=== PATIENT | male | born 1940 | race Caucasian/White ===

== ENCOUNTER 2016-09-28 13:31 | Inpatient (IN) | payer OTHER ==
[~2016-09-28] VITALS: Ht 167.6 cm; Wt 72.3 kg
[2016-09-28] VITALS (8 sets, daily range): BP systolic 115–157; BP diastolic 56–72; PULSE 65–71; RESP 18–30; TEMP 98.7–101; O2SAT 92–97
[~2016-09-28 13:31] MED LIST: 1-ME1LIQ PO; ALBU17I INH; ASPI81TA82 PO; COUM4TAB7 PO; FISH100020 OR; ISOS60TA PO; LASI20TA PO; LEVEMIR SQ; LISI-360 PO; METO50TA PO; NOVOLOGP2 SQ; PRED20 PO; SIMV40TA PO; WARF6 PO
[2016-09-28] MEDS ORDERED: ONDANSETRON HCL 4 MG/2 ML VIAL ONE (13:37)
[2016-09-28] MEDS ORDERED: FUROSEMIDE 40 MG/4 ML VIAL IVP ONE (14:00)
[2016-09-28] MEDS ORDERED: NITROGLYCERIN 0.4 MG SL 25 TABS/BTL SL ONE (14:00)
[2016-09-28] MEDS ORDERED: RESP: ALBUTEROL 2.5 MG/IPRATROPIUM 0.5 MG NEB (SCH) INH ONE (14:00)
[2016-09-28] MEDS ORDERED: SODIUM CHLORIDE 0.9% FLUSH 10 ML FLUSH IVF PRN (14:00)
[2016-09-28] MEDS ORDERED: NITROGLYCERIN 2% OINT 1 GM PACKET TOPICAL ONE (14:00)
[2016-09-28] MEDS ORDERED: ONDANSETRON HCL 4 MG/2 ML VIAL IV ONE ×2 (14:30)
--- NOTE | 2016-09-28 14:36 | PD ---
HPI Chief Complaint: Respiratory Distress Time Seen by Provider: 13:41 Travel History International Travel<30 days: No Contact w/Intl Traveler<30days: No Traveled to known affect area: No History of Present Illness HPI This 76-year-old man who presents to the emergency department complaining of shortness of breath and trouble breathing is been ongoing for a couple weeks. He's also been having more recent cough cold symptoms over the past several days. A little bit of left-sided chest pain, worse with coughing or deep breathing. He's also had some chronic edema in his lower extremities that maybe a little bit worse than normal. [facility] and [facility] department. His a history of CHF, CAD, pacemaker placement, as well as diabetes and A. fib. He is on warfarin. He's been taking all of his medications regularly including his Lasix 20 mg daily. No definite fevers by history although he was 101 today. History Past Medical History Narrative Medical Atrial fibrillation, on warfarin Biotronic pacemaker placed Diabetes ASCVD Hyperlipidemia Neuropathy CAD status post stent, possible CO CHF Tetanus Vaccination: < 5 Years Influenza Vaccination: Yes LMP: 6 Social History Alcohol Use: No Tobacco Use: No Allergies-Medications (Allergen,Severity, Reaction): Coded Allergies: Contrast Media (Verified Allergy, Intermediate, RASH, 08/24/13) Gabapentin (Verified Allergy, DISORIENTATION , 08/24/13) Lopid (Verified Allergy, GI PROBLEM, 08/24/13) Metformin (Verified Allergy, GI PROBLEM, 08/24/13) Reported Meds & Prescriptions Reported Meds & Active Scripts Active Reported Warfarin 2 Mg Tab 2 Mg PO TUESDAY Warfarin 4 Mg Tab 4 Mg PO SUTUWETHFRSA Simvastatin 10 Mg Tab 10 Mg PO HS Metoprolol Tartrate 25 Mg Tab 25 Mg PO BID Lisinopril 10 Mg Tab 10 Mg PO DAILY Isosorbide Mononitrate ER (Isosorbide Mononitrate) 60 Mg Tab 60 Mg PO DAILY Novolin N Inj (Insulin Human NPH) 1,000 Unit/10 Ml Vial 40 Units SQ BID Isopto Tears Opth Drops (Hypromellose) 0.5% Drops 1 Drop EACH EYE QID Lasix (Furosemide) 20 Mg Tab 20 Mg PO BID Aspirin EC Low Dose (Aspirin) 81 Mg Tabec 81 Mg PO DAILY Polyvinyl Alcohol Opth (Polyvinyl Alcohol) 1.4% Soln 1 Drop EACH EYE QID Amlodipine (Amlodipine Besylate) 10 Mg Tab 10 Mg PO DAILY Ventolin Hfa 18 GM Inh (Albuterol Sulfate) 90 Mcg/Act Aer 2 Puff INH TID PRN Review of Systems Except as stated in HPI: all other systems reviewed are Neg Physical Exam Narrative GENERAL: 76-year-old man, intermittent vomiting, moderate respiratory distress. SKIN: Focused skin assessment warm/dry. HEAD: Atraumatic. Normocephalic. EYES: Pupils equal and round. No scleral icterus. No injection or drainage. ENT: No nasal bleeding or discharge. Mucous membranes pink and moist. NECK: Trachea midline. No JVD. CARDIOVASCULAR: Regular rate and rhythm. No murmur appreciated. RESPIRATORY: Coarse breath sounds on the posterior lung liu arouse throughout the lower lungs. Moderate respiratory distress, speaks in short sentences. GASTROINTESTINAL: Abdomen soft, non-tender, nondistended. Hepatic and splenic margins not palpable. MUSCULOSKELETAL: No obvious deformities. Moderate pitting edema both lower extremities. NEUROLOGICAL: Awake and alert. No obvious cranial nerve deficits. Motor grossly within normal limits. Normal speech. PSYCHIATRIC: Anxious appearing. Data Data Last Documented VS Vital Signs Date Time Temp Pulse Resp B/P Pulse Ox O2 Delivery O2 Flow Rate FiO2 09/28/16 14:25 71 20 97 Nasal Cannula 4 09/28/16 14:23 155/72 09/28/16 14:19 101.0 Orders Ondansetron Inj (Zofran Inj) (09/28/16 13:37) Complete Blood Count With Diff (09/28/16 13:55) Comprehensive Metabolic Panel (09/28/16 13:55) B-Type Natriuretic Peptide (09/28/16 13:55) Act Partial Throm Time (Ptt) (09/28/16 13:55) Prothrombin Time / Inr (Pt) (09/28/16 13:55) Magnesium (Mg) (09/28/16 13:55) Troponin I (09/28/16 13:55) Urinalysis - C+S If Indicated (09/28/16 13:55) Iv Access Insert/Monitor (09/28/16 13:55) Ecg Monitoring (09/28/16 13:55) Oximetry (09/28/16 13:55) Oxygen Administration (09/28/16 13:55) Chest, Single Ap (09/28/16 13:55) Sodium Chloride 0.9% Flush (Ns Flush) (09/28/16 14:00) Furosemide Inj (Lasix Inj) (09/28/16 14:00) Albuterol-Ipratropium Neb (Duoneb Neb) (09/28/16 14:00) Nitroglycerin Sl (Nitrostat Sl) (09/28/16 14:00) Nitroglycerin 2% Oint (Nitroglycerin 2% (09/28/16 14:00) Lactic Acid (09/28/16 14:12) Blood Culture (09/28/16 14:12) Ondansetron Inj (Zofran Inj) (09/28/16 14:30) Ondansetron Inj (Zofran Inj) (09/28/16 14:30) Ceftriaxone Inj (Rocephin Inj) (09/28/16 15:45) Azithromycin Inj (Zithromax Inj) (09/28/16 15:45) Admit Order (Ed Use Only) (09/28/16 ) Labs Laboratory Tests Test 09/28/16 09/28/16 09/28/16 14:05 14:10 15:30 White Blood Count 18.1 TH/MM3 Red Blood Count 5.74 MIL/MM3 Hemoglobin 15.5 GM/DL Hematocrit 48.3 % Mean Corpuscular Volume 84.1 FL Mean Corpuscular Hemoglobin 27.0 PG Mean Corpuscular Hemoglobin 32.1 % Concent Red Cell Distribution Width 15.1 % Platelet Count 256 TH/MM3 Mean Platelet Volume 9.0 FL Neutrophils (%) (Auto) 85.7 % Lymphocytes (%) (Auto) 7.1 % Monocytes (%) (Auto) 6.3 % Eosinophils (%) (Auto) 0.5 % Basophils (%) (Auto) 0.4 % Neutrophils # (Auto) 15.5 TH/MM3 Lymphocytes # (Auto) 1.3 TH/MM3 Monocytes # (Auto) 1.1 TH/MM3 Eosinophils # (Auto) 0.1 TH/MM3 Basophils # (Auto) 0.1 TH/MM3 CBC Comment DIFF FINAL Differential Comment Prothrombin Time 28.7 SEC Prothromb Time International 2.5 RATIO Ratio Activated Partial 37.0 SEC Thromboplast Time Sodium Level 142 MEQ/L Potassium Level 3.8 MEQ/L Chloride Level 108 MEQ/L Carbon Dioxide Level 23.1 MEQ/L Anion Gap 11 MEQ/L Blood Urea Nitrogen 21 MG/DL Creatinine 1.51 MG/DL Estimat Glomerular Filtration 45 ML/MIN Rate Random Glucose 159 MG/DL Calcium Level 9.4 MG/DL Magnesium Level 2.1 MG/DL Total Bilirubin 1.3 MG/DL Aspartate Amino Transf 21 U/L (AST/SGOT) Alanine Aminotransferase 21 U/L (ALT/SGPT) Alkaline Phosphatase 96 U/L Troponin I LESS THAN 0.02 NG/ML B-Type Natriuretic Peptide 230 PG/ML Total Protein 8.1 GM/DL Albumin 4.0 GM/DL Lactic Acid Level 3.7 mmol/L Urine Color YELLOW Urine Turbidity CLEAR Urine pH 5.0 Urine Specific [place] 1.013 Urine Protein 30 mg/dL Urine Glucose (UA) NEG mg/dL Urine Ketones NEG mg/dL Urine Occult Blood NEG Urine Nitrite NEG Urine Bilirubin NEG Urine Urobilinogen LESS THAN 2.0 MG/DL Urine Leukocyte Esterase NEG Urine RBC 2 /hpf Urine WBC 1 /hpf Microscopic Urinalysis Comment CULT NOT INDICATED MDM Medical Decision Making Medical Screen Exam Complete: Yes Emergency Medical Condition: Yes Interpretation(s) My review of EKG: V paced at a rate of 69 LABS: CBC remarkable for white count of 18.1 thousand CMP is remarkable for elevated BUN and creatinine, total bili 1.3 Troponin negative BNP 2:30 Lactate 3.7 INR 2.5 Chest x-ray: Cardiomegaly with left basilar density, small left pleural effusion. Differential Diagnosis CHF, volume overload, pneumonia, sepsis, other Narrative Course Medical decision making INITIAL: This a 76 year-old woman with history of CHF who presents emergency Department respiratory distress with cough cold symptoms and associated evidence of volume overload. He likely a CHF exacerbation plus or minus pneumonia. He does have a fever. His a moderate respiratory distress. Was on diuretics, nitrates, check for ACS, and check an x-ray. Likely. Sugar pneumonia, no be admitted for observation and treatment. FINAL: 76 year-old woman with CHF exacerbation complicated by pneumonia. We'll treat antibiotics, diuretics, close monitoring. Diagnosis Primary Impression: CHF exacerbation Additional Impression: Pneumonia Admitting Information Admitting Physician Requests: Admit Disposition: DISCHARGE HOME Condition: Stable Dany Trivedi MD September 28, 2016 14:36
[2016-09-28] MEDS ORDERED: FURO1TAB62 PO (14:38)
[2016-09-28] MEDS ORDERED: AMLO10TA2 PO (14:38)
[2016-09-28] MEDS ORDERED: VENTAER INH (14:38)
[2016-09-28] MEDS ORDERED: ASPI81TA2 PO (14:38)
[2016-09-28] MEDS ORDERED: ISOP0.5S EACH EYE (14:38)
[2016-09-28] MEDS ORDERED: POLY0.052 EACH EYE (14:38)
[2016-09-28] MEDS ORDERED: NOVONP2 SQ (14:43)
[2016-09-28 14:50] LABS: AUTOMATED NEUTROPHIL # 15.5 TH/MM3 (1.8-7.7); BASOPHIL # 0.1 TH/MM3 (0-0.2); BASOPHIL % 0.4 % (0.0-2.0); EOSINOPHIL # 0.1 TH/MM3 (0-0.4); EOSINOPHIL % 0.5 % (0.0-4.0); HEMATOCRIT 48.3 % (39.0-51.0); HEMO FLAGS DIFF FINAL; LYMPH % 7.1 % (9.0-44.0); LYMPHOCYTE # 1.3 TH/MM3 (1.0-4.8); MEAN CELL VOLUME 84.1 FL (80.0-100.0); MEAN CORPUSCULAR HGB CONC 32.1 % (32.0-36.0); MONO % 6.3 % (0.0-8.0); NEUT % 85.7 % (16.0-70.0); PLATELET COUNT 256 TH/MM3 (150-450); RED BLOOD COUNT 5.74 MIL/MM3 (4.50-5.90); RED CELL DISTRIBUTION WIDTH 15.1 % (11.6-17.2); WHITE BLOOD COUNT 18.1 TH/MM3 (4.0-11.0)
--- NOTE | 2016-09-28 14:50 | RADRPT ---
EXAM DATE/TIME: 09/28/2016 14:05 [facility] COMPARISON: CHEST SINGLE AP, August 24, 2013, 10:34. INDICATIONS : Short of breath. MEDICAL HISTORY : Hypertension. Hypercholesterolemia. Congestive heart failure. Atrial fibrillation. Diabetes. SURGICAL HISTORY : None. ENCOUNTER: Initial ACUITY: 1 day PAIN SCORE: 2/10 LOCATION: Bilateral chest FINDINGS: A single view of the chest demonstrates cardiomegaly with small left pleural effusion. There is some pleural thickening laterally on the left. Left basilar density. Right lung clear. Left-sided pacemake r with 2 intact leads. Osseous structures are intact. CONCLUSION: 1. Cardiomegaly with left basilar density. 2. Small pleural effusion on the left. Rambo Hare MD on September 28, 2016 at 14:48 Board Certified Radiologist. This report was verified electronically.
[2016-09-28] MEDS ORDERED: SIMV10TA PO (14:51)
[2016-09-28] MEDS ORDERED: WARF-20 PO (14:51)
[2016-09-28] MEDS ORDERED: ISOS60TA PO (14:51)
[2016-09-28] MEDS ORDERED: WARF4TAB51 PO (14:51)
[2016-09-28] MEDS ORDERED: METO25TA3 PO (14:51)
[2016-09-28] MEDS ORDERED: LISI10TA3 PO (14:51)
[2016-09-28 14:56] LABS: INTERNATIONAL NORMALIZED RATIO 2.5 RATIO; PROTHROMBIN TIME - PATIENT 28.7 SEC (9.8-11.6)
[2016-09-28 15:08] LABS: ALT (GPT) 21 U/L (12-78); ANION GAP 11 MEQ/L (5-15); AST (GOT) 21 U/L (15-37); BICARBONATE 23.1 MEQ/L (21.0-32.0); BLOOD UREA NITROGEN 21 MG/DL (7-18); CHLORIDE 108 MEQ/L (98-107); GLOMERULAR FILTRATION RATE 45 ML/MIN (>89); MAGNESIUM 2.1 MG/DL (1.5-2.5); POTASSIUM 3.8 MEQ/L (3.5-5.1); SODIUM (NA) 142 MEQ/L (136-145)
[2016-09-28 15:12] LABS: ALKALINE PHOSPHATASE 96 U/L (45-117); TOTAL BILIRUBIN ADULT 1.3 MG/DL (0.2-1.0)
[2016-09-28] MEDS ORDERED: cefTRIAXone INJ 1,000 MG in SODIUM CHLORIDE 0.9% INJ 100 ML IV ONE (15:45)
[2016-09-28] MEDS ORDERED: AZITHROMYCIN INJ 500 MG in SODIUM CHLOR 0.9% 250 ML INJ 250 ML IV ONE (15:45)
[2016-09-28 16:04] LABS: BLOOD, URINE NEG (NEG); GLUCOSE,URINE NEG (NEG); KETONE, URINE NEG (NEG); NITRITE,URINE NEG (NEG); URINE COLOR YELLOW (YELLW/STRAW)
[2016-09-28 16:12] LABS: COMMENT (UR) CULT NOT INDICATED; CULTURE IF INDICATED CULT NOT INDICATED
[2016-09-28] MEDS ORDERED: SODIUM CHLORIDE 0.9% FLUSH 10 ML FLUSH IV FLUSH PRN (17:45)
[2016-09-28] MEDS: INSULIN HUMAN NPH 1,000 UNITS/10 ML VIAL SQ SCH (19:30)
[2016-09-28] MEDS ORDERED: RESP: ALBUTEROL 2.5 MG/IPRATROPIUM 0.5 MG NEB (SCH) NEB ONE (19:45)
[2016-09-28] MEDS ORDERED: POTASSIUM CHLORIDE 20 MEQ CONTROLLED RELEASE TAB PO ONE (19:45)
--- NOTE | 2016-09-28 19:50 | HHI.HP ---
[facility] Admission Diagnosis pneumonia, CHF exacerbation Diagnoses: Chief Complaint: Shortness of breath Travel History International Travel<30 Days: No Contact w/Intl Traveler <30 Da: No Traveled to Known Affected Are: No History of Present Illness The patient is a 76-year-old male with a past medical history of heart failure who is presenting to the hospital with shortness of breath. The patient says he has had a cough over the past month. He says that cough has been productive but he is unable to describe what color the mucus has been. He says he has been having coughing fits which are worse at night. He says he recently went to [place] where it was cold and he developed cold-like symptoms. He endorsed chills and congestion. He has also had increasing shortness of breath. He has been noticing weight gain. He says his legs are swollen. He says over the years he has had 8 episodes of heart failure exacerbation. He says at night he sleeps on the left side of his body because he read that was better for you. He says today he had a fever. He went to the [facility] where he was referred to the hospital. He has been having a headache. He says his appetite has been poor. He has been ambulating without a cane or a walker. He says he takes 2 water pills daily. Review of Systems Except as stated in HPI: all other systems reviewed are Neg Past Family Social History Past Medical History Atrial fibrillation Biotronic pacemaker placed Diabetes Hyperlipidemia Hypertension Neuropathy CAD status post stent CHF Kidney stones Allergies: Coded Allergies: Contrast Media (Verified Allergy, Intermediate, RASH, 08/24/13) Gabapentin (Verified Allergy, DISORIENTATION , 08/24/13) Lopid (Verified Allergy, GI PROBLEM, 08/24/13) Metformin (Verified Allergy, GI PROBLEM, 08/24/13) Active Ordered Medications Current Medications Medications (Trade) Dose Ordered Sig/Lesa Route Start Time Stop Time Status Last Admin (NS Flush) 2 ml UNSCH PRN IV FLUSH 09/28/16 17:45 Sodium Chloride 2 ml 2 ml BID IV FLUSH 09/28/16 21:00 (Rocephin Inj/NS Inj) 100 ml @ 200 mls/hr Q24H IV 09/29/16 16:00 (Zithromax) 500 mg Q24H PO 09/29/16 16:00 Insulin Human NPH 20 units 20 units BID@08,17 SQ 09/28/16 19:30 (Coumadin Consult Pharmacy) 0 ml @ 0 mls/hr UNSCH OTHER 09/28/16 19:30 (Coumadin) 4 mg DAILY@16 PO 09/29/16 16:00 (Norvasc) 10 mg DAILY PO 09/29/16 09:00 (Ecotrin Ec) 81 mg DAILY PO 09/29/16 09:00 (Imdur) 60 mg DAILY PO 09/29/16 09:00 (Lopressor) 25 mg BID PO 09/28/16 21:00 (Pravachol) 20 mg HS PO 09/28/16 21:00 (Lasix Inj) 40 mg BID@09,18 IV PUSH 09/29/16 09:00 UNV (KCl) 20 meq ONCE ONCE PO 09/28/16 19:45 09/28/16 19:46 UNV Family History The patient denies pertinent family history. Social History The patient quit smoking in 1996. He does not drink alcohol. Physical Exam Vital Signs Vital Signs Date Time Temp Pulse Resp B/P Pulse Ox O2 Delivery O2 Flow Rate FiO2 09/28/16 18:18 98.8 69 18 118/56 97 Nasal Cannula 3 09/28/16 17:00 70 18 138/65 96 Nasal Cannula 4 09/28/16 14:25 71 20 97 Nasal Cannula 4 09/28/16 14:23 69 25 155/72 97 Nasal Cannula 3 09/28/16 14:23 97 Nasal Cannula 4 09/28/16 14:19 101.0 71 24 157/65 97 Physical Exam GENERAL: Ill-appearing male, short of breath. SKIN: Focused skin assessment warm/dry. HEAD: Atraumatic. Normocephalic. EYES: Pupils equal and round. No scleral icterus. No injection or drainage. ENT: No nasal bleeding or discharge. Mucous membranes pink and moist. NECK: Trachea midline. No JVD. CARDIOVASCULAR: Regular rate and rhythm. No murmur appreciated. RESPIRATORY: Coarse breath sounds. GASTROINTESTINAL: Abdomen soft, non-tender, nondistended. Hepatic and splenic margins not palpable. MUSCULOSKELETAL: No obvious deformities. 1+ pitting edema of both lower extremities. NEUROLOGICAL: Awake and alert. No obvious cranial nerve deficits. Motor grossly within normal limits. Normal speech. PSYCHIATRIC: Anxious appearing. Laboratory Laboratory Tests Test 09/28/16 09/28/16 09/28/16 14:05 14:10 15:30 White Blood Count 18.1 Red Blood Count 5.74 Hemoglobin 15.5 Hematocrit 48.3 Mean Corpuscular Volume 84.1 Mean Corpuscular Hemoglobin 27.0 Mean Corpuscular Hemoglobin 32.1 Concent Red Cell Distribution Width 15.1 Platelet Count 256 Mean Platelet Volume 9.0 Neutrophils (%) (Auto) 85.7 Lymphocytes (%) (Auto) 7.1 Monocytes (%) (Auto) 6.3 Eosinophils (%) (Auto) 0.5 Basophils (%) (Auto) 0.4 Neutrophils # (Auto) 15.5 Lymphocytes # (Auto) 1.3 Monocytes # (Auto) 1.1 Eosinophils # (Auto) 0.1 Basophils # (Auto) 0.1 CBC Comment DIFF FINAL Differential Comment Prothrombin Time 28.7 Prothromb Time International 2.5 Ratio Activated Partial 37.0 Thromboplast Time Sodium Level 142 Potassium Level 3.8 Chloride Level 108 Carbon Dioxide Level 23.1 Anion Gap 11 Blood Urea Nitrogen 21 Creatinine 1.51 Estimat Glomerular Filtration 45 Rate Random Glucose 159 Calcium Level 9.4 Magnesium Level 2.1 Total Bilirubin 1.3 Aspartate Amino Transf 21 (AST/SGOT) Alanine Aminotransferase 21 (ALT/SGPT) Alkaline Phosphatase 96 Troponin I LESS THAN 0.02 B-Type Natriuretic Peptide 230 Total Protein 8.1 Albumin 4.0 Lactic Acid Level 3.7 Urine Color YELLOW Urine Turbidity CLEAR Urine pH 5.0 Urine Specific [place] 1.013 Urine Protein 30 Urine Glucose (UA) NEG Urine Ketones NEG Urine Occult Blood NEG Urine Nitrite NEG Urine Bilirubin NEG Urine Urobilinogen LESS THAN 2.0 Urine Leukocyte Esterase NEG Urine RBC 2 Urine WBC 1 Microscopic Urinalysis Comment CULT NOT INDICATED Date/Time Procedure Status Source Growth 09/28/16 14:10 Aerobic Blood Culture Received Blood Peripheral Pending 09/28/16 14:10 Anaerobic Blood Culture Received Blood Peripheral Pending Result Diagram: 09/28/16 1405 09/28/16 1405 Imaging Last Impressions Chest X-Ray 09/28/16 1354 Signed Impressions: Service Date/Time: Wednesday, September 28, 2016 14:05 - CONCLUSION: 1. Cardiomegaly with left basilar density. 2. Small pleural effusion on the left. Rambo Hare MD Assessment and Plan Assessment and Plan Acute respiratory failure The patient presents with a cough over the past month and increasing shortness of breath. Chest x-ray with questionable pneumonia on the left. The patient endorses a history of heart failure, although an echo in 2013 showed a normal ejection fraction. He does have lower extremity edema, which may be exacerbated by amlodipine. BNP elevated at 230. He does have a smoking history and may have underlying COPD. - Continue ceftriaxone and azithromycin. - Continue Lasix 40 mg IV twice a day. - Start Solu-Medrol 40 mg IV every 8 hours. - Repeat echocardiogram. - Follow I's and O's. - Duo nebs and oxygen as needed. - Sputum culture and Gram stain. Follow blood cultures. - Physical therapy. Acute renal insufficiency Possibly secondary to diuretics. - Follow creatinine while diuresing. - Hold lisinopril for now. - Avoid nephrotoxic agents. Diabetes The patient says his diabetes is poorly controlled. - Continue home regimen at half the dose. - Insulin sliding scale with Accu-Cheks. Hypertension Blood pressure relatively well-controlled. - Hold lisinopril and amlodipine. Resume other home medications. - Vasotec as needed. Elevated LFTs Total bilirubin is elevated. Unsure of baseline. May be secondary to hepatic congestion. - Continue to trend LFTs. PPx: Coumadin Code Status Full. Discussed Condition With Pt, pt's family. Physician Certification 2 Midnight Certification Type: Admission for Inpatient Services Order for Inpatient Services The services are ordered in accordance with Medicare regulations or non- Medicare payer requirements, as applicable. In the case of services not specified as inpatient-only, they are appropriately provided as inpatient services in accordance with the 2-midnight benchmark. Estimated LOS (days): 2 days is the estimated time the patient will need to remain in the hospital, assuming treatment plan goals are met and no additional complications. Post-Hospital Plan: Not yet determined Matty Hale DO September 28, 2016 19:50
--- NOTE | 2016-09-28 19:56 | EKG ---
Date Performed: 09/28/2016 Time Performed: 13:55:33 PTAGE: 76 years EKG: ELECTRONIC VENTRICULAR PACEMAKER ABNORMAL RHYTHM ECG PREVIOUS TRACING : 08/24/2013 22.47 Compared to prior tracing no significant change DOCTOR: Marissa Catherine Interpretating Date/Time 09/28/2016 19:56:01
[2016-09-28] MEDS ORDERED: NON-FORMULARY DRUG (Simvastatin 10 MG) PO SCH (21:00)
[2016-09-28] MEDS: methylPREDNISolone SOD SUCC 40 MG/1 ML VIAL IV PUSH SCH (21:02)
[2016-09-28] MEDS: SODIUM CHLORIDE 0.9% FLUSH 10 ML FLUSH IV FLUSH SCH (21:02)
[2016-09-28] MEDS: METOPROLOL TARTRATE 25 MG TAB PO SCH (21:02)
[2016-09-28] MEDS: PRAVASTATIN SOD 20 MG TAB PO SCH (21:10)
[2016-09-28] MEDS: INSULIN ASPART SUPPLEMENTAL SCALE SQ SCH (21:15)
[2016-09-28] MEDS ORDERED: CHLORHEXIDINE GLUCONATE 2 % 1 PACK (2 CLOTHS)(extra cloths) TOPICAL PRN (22:30)
[2016-09-29] VITALS (15 sets, daily range): BP systolic 121–141; BP diastolic 65–79; PULSE 69; RESP 18–33; TEMP 97.5–98.1; O2SAT 95–98
[2016-09-29] MEDS: CHLORHEXIDINE GLUCONATE 2 % 1 PACK (2 CLOTHS)(taper/protocol) TOPICAL SCH (04:00)
[2016-09-29 04:33] LABS: AUTOMATED NEUTROPHIL # 11.7 TH/MM3 (1.8-7.7); BASOPHIL # 0.1 TH/MM3 (0-0.2); BASOPHIL % 0.5 % (0.0-2.0); HEMATOCRIT 42.7 % (39.0-51.0); HEMO FLAGS DIFF FINAL; LYMPH % 3.8 % (9.0-44.0); LYMPHOCYTE # 0.5 TH/MM3 (1.0-4.8); MEAN CORPUSCULAR HEMOGLOBIN 27.2 PG (27.0-34.0); MEAN CORPUSCULAR HGB CONC 32.4 % (32.0-36.0); MONO % 2.2 % (0.0-8.0); NEUT % 93.5 % (16.0-70.0); PLATELET COUNT 191 TH/MM3 (150-450); RED BLOOD COUNT 5.08 MIL/MM3 (4.50-5.90); RED CELL DISTRIBUTION WIDTH 15.2 % (11.6-17.2); WHITE BLOOD COUNT 12.5 TH/MM3 (4.0-11.0)
[2016-09-29 04:56] LABS: INTERNATIONAL NORMALIZED RATIO 2.2 RATIO; PROTHROMBIN TIME - PATIENT 25.2 SEC (9.8-11.6)
[2016-09-29 04:57] LABS: BICARBONATE 21.8 MEQ/L (21.0-32.0)
[2016-09-29 05:03] LABS: INDIRECT BILIRUBIN 0.4 MG/DL (0.0-0.8); TOTAL BILIRUBIN ADULT 0.6 MG/DL (0.2-1.0)
[2016-09-29] MEDS: methylPREDNISolone SOD SUCC 40 MG/1 ML VIAL IV PUSH SCH ×3 (05:22→20:24)
[2016-09-29] MEDS: INSULIN ASPART SUPPLEMENTAL SCALE SQ SCH ×4 (05:22→21:00)
[2016-09-29] MEDS ORDERED: SODIUM POLYSTYRENE SULFONATE SUSP 15 GM/60 ML CUP PO ONE (07:30)
[2016-09-29] MEDS: ASPIRIN EC 81 MG TABEC PO SCH (09:34)
[2016-09-29] MEDS: ISOSORBIDE MONONITRATE 60 MG TAB PO SCH (09:34)
[2016-09-29] MEDS: INSULIN HUMAN NPH 1,000 UNITS/10 ML VIAL SQ SCH ×2 (09:34→16:31)
[2016-09-29] MEDS: METOPROLOL TARTRATE 25 MG TAB PO SCH ×2 (09:35→20:24)
[2016-09-29] MEDS: SODIUM CHLORIDE 0.9% FLUSH 10 ML FLUSH IV FLUSH SCH ×2 (09:35→21:00)
[2016-09-29] MEDS: FUROSEMIDE 40 MG/4 ML VIAL IV PUSH SCH ×2 (09:35→16:26)
[2016-09-29] MEDS: RESP: ALBUTEROL 2.5 MG/IPRATROPIUM 0.5 MG NEB (PRN) NEB (09:39)
--- NOTE | 2016-09-29 11:44 | EC ---
Study Study Date:09/29/2016 STUDY CONCLUSIONS SUMMARY - Left ventricle: The cavity size was normal. Systolic function was normal. The estimated ejection fraction was in the range of 60% to 65%. Although no diagnostic regional wall motion abnormality was identified, this possibility cannot be completely excluded on the basis of this study. The study is not technically sufficient to allow evaluation of LV diastolic function. - Ventricular septum: Septal motion showed paradox. These changes are consistent with right ventricular pacing. - Aortic valve: There is aortic vavlve sclerosis, without stenosis. - Mitral valve: Mild to moderate regurgitation. - Right ventricle: The cavity size was mildly dilated. Pacer wire or catheter noted in right ventricle. Systolic function was mildly reduced. - Tricuspid valve: Moderate regurgitation directed toward the septum. - Pulmonary arteries: PA peak pressure: 39mm Hg (S). If LV function is below 40, please consider prescribing an ACEI or ARB or document rationale for non-use. PROCEDURE DATA STUDY STATUS: Elective. Procedure: Transthoracic echocardiography. Image quality was good. Scanning was performed from the parasternal, apical, and subcostal acoustic windows. Study completion: The patient tolerated the procedure well. Transthoracic echocardiography. M-mode, complete 2D, complete spectral Doppler, and color Doppler. Height: Height: 66in. Weight: Weight: 156.7lb. Body mass index: BMI: 25.3kg/m^2. Body surface area: BSA: 1.8m^2. Patient status: Inpatient. CARDIAC ANATOMY LEFT VENTRICLE: The cavity size was normal. Systolic function was normal. The estimated ejection fraction was in the range of 60% to 65%. Although no diagnostic regional wall motion abnormality was identified, this possibility cannot be completely excluded on the basis of this study. The study is not technically sufficient to allow evaluation of LV diastolic function. AORTIC VALVE: The valve appears to be grossly normal. Doppler: There is aortic vavlve sclerosis, without stenosis. No significant regurgitation. Valve area: 1.26cm^2(VTI). Indexed valve area: 0.7cm^2/m^2 (VTI). Valve area: 1cm^2 (Vmax). Indexed valve area: 0.56cm^2/m^2 (Vmax). Mean gradient: 5mm Hg (S). Peak gradient: 11mm Hg (S). MITRAL VALVE: The valve appears to be grossly normal. Doppler: There was no evidence for stenosis. Mild to moderate regurgitation. Peak gradient: 4mm Hg (D). LEFT ATRIUM: The atrium was mildly dilated. RIGHT VENTRICLE: The cavity size was mildly dilated. Pacer wire or catheter noted in right ventricle. Systolic function was mildly reduced. VENTRICULAR SEPTUM: Septal motion showed paradox. These changes are consistent with right ventricular pacing. PULMONIC VALVE: Not well visualized. Doppler: There was no evidence for stenosis. Trace regurgitation. TRICUSPID VALVE: The valve appears to be grossly normal. Doppler: There was no evidence for stenosis. Moderate regurgitation directed toward the septum. PERICARDIUM: There was no pericardial effusion. Patient weight: 156.7lb _Ejection fraction:_ 65-75% _Fractional shortening:_ 32% up to 5Kg 5-11.5Kg 11.6-22.9Kg 23-45Kg 45-57Kg Aortic Root 7-13 <17 13-22 17-27 17-27 LA diam 6-13 <23 24-38 33-47 37-40 RVID 10-17 7-15 7-15 7-18 8-17 LVIDd 12-22 <32 24-38 33-47 37-40 LVPW 2-4 3-6 5-7 6-8 7-8 IVS 2-4 3-6 5-7 6-8 7-8 BASIC MEASUREMENTS ADULT NORMAL Left ventricle LV internal dimension, ED, chordal *42.5 mm 43-52 level, PLAX LV internal dimension, ES, chordal 26.5 mm 23-38 level, PLAX Fractional shortening, chordal level, 38 % >29 PLAX LV posterior wall thickness, ED 9.31 mm IVS/LVPW ratio, ED 1 <1.3 Ventricular septum Septal thickness, ED 9.31 mm Aortic valve Leaflet separation 16 mm 15-26 Aorta Root diameter, ED 27 mm Left atrium Anterior-posterior dimension 44 mm Anterior-posterior dimension index *2.44 cm/m^2 <2.2 BASIC MEASUREMENTS ADULT NORMAL Aortic valve Leaflet separation 16 mm 15-26 DOPPLER MEASUREMENTS ADULT NORMAL Main pulmonary artery Pressure, S *39 mm Hg =30 Aortic valve Peak velocity, S 165 cm/s Mean velocity, S 109 cm/s VTI, S 28.2 cm Mean gradient, S 5 mm Hg Peak gradient, S 11 mm Hg Valve area, VTI 1.26 cm^2 Valve area index, VTI 0.7 cm^2/m^2 Valve area, Vmax 1 cm^2 Valve area index, Vmax 0.56 cm^2/m^2 Mitral valve Peak E-wave velocity 106 cm/s Peak A-wave velocity 23.7 cm/s Deceleration time *275 ms 150-230 Peak gradient, D 4 mm Hg Peak E/A ratio 4.5 Tricuspid valve Regurgitant peak velocity 273 cm/s Peak RV-RA gradient, S 30 mm Hg Maximal regurgitant velocity 273 cm/s Systemic veins Estimated CVP 10 mm Hg Right ventricle RV pressure, S *40 mm Hg <30 Pulmonic valve Peak velocity, S 53.4 cm/s LEGEND: Mean values are shown as u=mean value. Asterisk (*) jon values outside specified normal range. Prepared and signed by Андрей Thornton [id number]
[2016-09-29] MEDS: WARFARIN SOD 4 MG TAB PO SCH (16:25)
[2016-09-29] MEDS: AZITHROMYCIN 250 MG TAB PO SCH (16:25)
[2016-09-29] MEDS: cefTRIAXone INJ 1,000 MG in SODIUM CHLORIDE 0.9% INJ 100 ML IV SCH (16:26)
--- NOTE | 2016-09-29 17:43 | HHI.PR ---
Objective Vitals Vital Signs Date Time Temp Pulse Resp B/P Pulse Ox O2 Delivery O2 Flow Rate FiO2 09/29/16 16:00 98.1 69 18 121/65 97 09/29/16 16:00 69 09/29/16 14:00 69 09/29/16 12:00 98.0 69 33 131/79 96 09/29/16 12:00 69 09/29/16 10:00 69 09/29/16 09:38 98 Nasal Cannula 2.00 09/29/16 08:00 69 09/29/16 08:00 97.5 69 31 141/74 98 09/29/16 06:00 69 09/29/16 05:29 97.5 69 31 123/68 98 09/29/16 04:00 69 09/29/16 02:00 69 09/29/16 00:00 69 09/28/16 22:20 98.7 71 20 115/66 92 09/28/16 21:00 65 30 127/63 97 Nasal Cannula 3 09/28/16 20:05 93 Nasal Cannula 3.00 09/28/16 19:00 69 25 123/61 97 Nasal Cannula 3 09/28/16 18:18 98.8 69 18 118/56 97 Nasal Cannula 3 I/O 09/28/16 09/28/16 09/28/16 09/29/16 09/29/16 09/29/16 07:00 15:00 23:00 07:00 15:00 23:00 Intake Total 60 ml 600 ml Output Total 350 ml 700 ml Balance -290 ml -100 ml Intake Oral 60 ml 600 ml Output Urine Total 350 ml 700 ml # Bowel Movements 1 Result Diagram: 09/29/1639909/29/160 Suzette Parra MD September 29, 2016 17:43 Acute respiratory failure The patient presents with a cough over the past month and increasing shortness of breath. Chest x-ray with questionable pneumonia on the left. The patient endorses a history of heart failure, although an echo in 2013 showed a normal ejection fraction. He does have lower extremity edema, which may be exacerbated by amlodipine. BNP elevated at 230. He does have a smoking history and may have underlying COPD. - Continue ceftriaxone and azithromycin. - Continue Lasix 40 mg IV twice a day. - Start Solu-Medrol 40 mg IV every 8 hours. - Repeat echocardiogram. - Follow I's and O's. - Duo nebs and oxygen as needed. - Sputum culture and Gram stain. Follow blood cultures. - Physical therapy. Acute renal insufficiency Possibly secondary to diuretics. - Follow creatinine while diuresing. - Hold lisinopril for now. - Avoid nephrotoxic agents. Diabetes The patient says his diabetes is poorly controlled. - Continue home regimen at half the dose. - Insulin sliding scale with Accu-Cheks. Hypertension Blood pressure relatively well-controlled. - Hold lisinopril and amlodipine. Resume other home medications. - Vasotec as needed. Elevated LFTs Total bilirubin is elevated. Unsure of baseline. May be secondary to hepatic congestion. - Continue to trend LFTs. PPx: Coumadin Code Status Full. Discussed Condition With Pt, pt's family. Suzette Parra MD September 29, 2016 17:43
--- NOTE | 2016-09-29 17:53 | HHI.PR ---
Subjective Remarks feeling much better cough- dry telemetry - paced rhythm Objective Vitals Vital Signs Date Time Temp Pulse Resp B/P Pulse Ox O2 Delivery O2 Flow Rate FiO2 09/29/16 16:00 98.1 69 18 121/65 97 09/29/16 16:00 69 09/29/16 14:00 69 09/29/16 12:00 98.0 69 33 131/79 96 09/29/16 12:00 69 09/29/16 10:00 69 09/29/16 09:38 98 Nasal Cannula 2.00 09/29/16 08:00 69 09/29/16 08:00 97.5 69 31 141/74 98 09/29/16 06:00 69 09/29/16 05:29 97.5 69 31 123/68 98 09/29/16 04:00 69 09/29/16 02:00 69 09/29/16 00:00 69 09/28/16 22:20 98.7 71 20 115/66 92 09/28/16 21:00 65 30 127/63 97 Nasal Cannula 3 09/28/16 20:05 93 Nasal Cannula 3.00 09/28/16 19:00 69 25 123/61 97 Nasal Cannula 3 09/28/16 18:18 98.8 69 18 118/56 97 Nasal Cannula 3 I/O 09/28/16 09/28/16 09/28/16 09/29/16 09/29/16 09/29/16 07:00 15:00 23:00 07:00 15:00 23:00 Intake Total 60 ml 600 ml Output Total 350 ml 700 ml Balance -290 ml -100 ml Intake Oral 60 ml 600 ml Output Urine Total 350 ml 700 ml # Bowel Movements 1 Result Diagram: 09/29/16 0400 09/29/16 0400 Imaging Last Impressions Chest X-Ray 09/28/16 1355 Signed Impressions: Service Date/Time: Wednesday, September 28, 2016 14:05 - CONCLUSION: 1. Cardiomegaly with left basilar density. 2. Small pleural effusion on the left. Rambo Hare MD Objective Remarks awake alert, oriented x 3 anicteric lungs with rhnchi and few expiratory wheezes regular rhythm abdomen soft, nontender extremities- trace pretibial edema A/P Assessment and Plan Acute respiratory failure- history of COPD on MDIs, previous smoker- patient clinically feeling better The patient presents with a cough over the past month and increasing shortness of breath. Chest x-ray with questionable pneumonia on the left. The patient endorses a history of heart failure, although an echo in 2013 showed a normal ejection fraction. He does have lower extremity edema, which may be exacerbated by amlodipine. BNP elevated at 230. He does have a smoking history and may have underlying COPD. doubt PE- patient on coumadin- INR therapeutic ([place] - Continue ceftriaxone and azithromycin. - Continue Lasix 40 mg IV twice a day.- - hold with increasing creatinine. lungs clear - continue Solu-Medrol 40 mg IV every 8 hours- decrease to q12. - Repeat echocardiogram ordered - Follow I's and O's. - Duo nebs and oxygen as needed. - Sputum culture and Gram stain. Follow blood cultures. - Physical therapy. Acute renal insufficiency HYperkalemia- patient received x 1 IV Lasix this am. Give Kayexalate x 1. recheck in am Possibly secondary to diuretics.- hold - Follow creatinine - Hold lisinopril for now. - Avoid nephrotoxic agents.- gentle hydration Diabetes Mellitus type 2. The patient says his diabetes is poorly controlled. - Continue home regimen at half the dose. check A1C- states he is on Novolin N and R combination - Insulin sliding scale with Accu-Cheks. Hypertension Blood pressure relatively well-controlled. - Hold lisinopril and amlodipine. Resume other home medications. - Vasotec as needed. Elevated LFTs Total bilirubin is elevated. Unsure of baseline. May be secondary to hepatic congestion. - Continue to trend LFTs. PPx: Coumadin discussed with patient Suzette Parra MD September 29, 2016 17:53
[2016-09-29] MEDS: PRAVASTATIN SOD 20 MG TAB PO SCH (20:24)
[2016-09-30] VITALS (14 sets, daily range): BP systolic 116–138; BP diastolic 61–82; PULSE 69; RESP 19–30; TEMP 97.1–97.9; O2SAT 94–96
[2016-09-30] MEDS: CHLORHEXIDINE GLUCONATE 2 % 1 PACK (2 CLOTHS)(taper/protocol) TOPICAL SCH (04:00)
[2016-09-30] MEDS: methylPREDNISolone SOD SUCC 40 MG/1 ML VIAL IV PUSH SCH ×3 (04:51→20:08)
[2016-09-30] MEDS: INSULIN ASPART SUPPLEMENTAL SCALE SQ SCH ×4 (04:57→20:21)
[2016-09-30] MEDS: SODIUM CHLORIDE 0.9% FLUSH 10 ML FLUSH IV FLUSH SCH ×2 (07:35→20:08)
[2016-09-30] MEDS: ISOSORBIDE MONONITRATE 60 MG TAB PO SCH (07:36)
[2016-09-30] MEDS: METOPROLOL TARTRATE 25 MG TAB PO SCH ×2 (07:36→20:08)
[2016-09-30] MEDS: INSULIN HUMAN NPH 1,000 UNITS/10 ML VIAL SQ SCH ×2 (07:36→16:56)
[2016-09-30] MEDS: ASPIRIN EC 81 MG TABEC PO SCH (07:36)
[2016-09-30 08:12] LABS: BICARBONATE 22.3 MEQ/L (21.0-32.0); POTASSIUM 5.6 MEQ/L (3.5-5.1)
[2016-09-30 11:15] LABS: INTERNATIONAL NORMALIZED RATIO 1.8 RATIO; PROTHROMBIN TIME - PATIENT 20.5 SEC (9.8-11.6)
[2016-09-30] MEDS: WARFARIN SOD 4 MG TAB PO SCH (15:21)
--- NOTE | 2016-09-30 15:21 | HHI.PR ---
Subjective Remarks feeling better + yellowish sputum up and ambulated around the unit - telemetry- paced rhythm Objective Vitals Vital Signs Date Time Temp Pulse Resp B/P Pulse Ox O2 Delivery O2 Flow Rate FiO2 09/30/16 12:00 69 09/30/16 10:00 69 09/30/16 08:33 94 Nasal Cannula 2.00 09/30/16 08:00 69 09/30/16 08:00 97.4 69 22 134/82 96 09/30/16 06:00 69 09/30/16 04:00 69 09/30/16 04:00 97.3 69 27 119/71 96 09/30/16 02:00 69 09/30/16 00:00 69 09/30/16 00:00 97.1 69 27 116/61 96 09/29/16 22:00 69 09/29/16 21:13 95 Nasal Cannula 2.00 09/29/16 20:00 97.6 69 30 122/65 95 09/29/16 20:00 69 09/29/16 18:00 69 09/29/16 16:00 98.1 69 18 121/65 97 09/29/16 16:00 69 I/O 09/29/16 09/29/16 09/29/16 09/30/16 09/30/16 09/30/16 07:00 15:00 23:00 07:00 15:00 23:00 Intake Total 60 ml 600 ml 240 ml 240 ml Output Total 350 ml 700 ml 900 ml 300 ml Balance -290 ml -100 ml -660 ml -60 ml Intake Oral 60 ml 600 ml 240 ml 240 ml Output Urine Total 350 ml 700 ml 900 ml 300 ml Stool Total 0 ml 0 ml # Bowel Movements 1 Result Diagram: 09/29/16 0400 09/30/16 0459 Imaging Last Impressions Chest X-Ray 09/28/16 1355 Signed Impressions: Service Date/Time: Wednesday, September 28, 2016 14:05 - CONCLUSION: 1. Cardiomegaly with left basilar density. 2. Small pleural effusion on the left. Rambo Hare MD Objective Remarks awake alert, oriented x 3 anicteric lungs with few expiratory wheezes, + rhonchis regular rhythm abdomen soft, nontender extremities- no edema A/P Assessment and Plan Acute respiratory failure- history of COPD on MDIs, previous smoker- patient clinically feeling better The patient presents with a cough over the past month and increasing shortness of breath. Chest x-ray with questionable pneumonia on the left. The patient endorses a history of heart failure, although an echo in 2013 showed a normal ejection fraction. He does have lower extremity edema, which may be exacerbated by amlodipine. BNP elevated at 230. He does have a smoking history and may have underlying COPD. doubt PE- patient on coumadin- INR therapeutic ([place]) - Continue ceftriaxone and azithromycin. - continue Solu-Medrol 40 mg IV every 8 hours.- lungs now clear- change to po Prednisone - Repeat echocardiogram.- EF 60-65% - Follow I's and O's. - Duo nebs and oxygen as needed. - Sputum culture and Gram stain- negative - up and ambulated independently Acute renal insufficiency Possibly secondary to diuretics.- hold - Follow creatinine-gentle hydration =BMP in am- creatinine trending down HYperkalemia- -give Kayexalate x 1 - Hold lisinopril for now. - Avoid nephrotoxic agents. Diabetes Mellitus type 2. The patient says his diabetes is poorly controlled. - Continue home regimen at half the dose. check A1C- states he is on Novolin N and R combination - Insulin sliding scale with Accu-Cheks. Hypertension Blood pressure relatively well-controlled. - Hold lisinopril- with elevated K. - continue amlodipine -EF 60-65% Elevated LFTs Total bilirubin is elevated. Unsure of baseline. May be secondary to hepatic congestion. - Continue to trend LFTs. PPx: Coumadin discussed with patient transfer to medical floor Suzette Parra MD September 30, 2016 15:21
[2016-09-30] MEDS: AZITHROMYCIN 250 MG TAB PO SCH (15:22)
[2016-09-30] MEDS: cefTRIAXone INJ 1,000 MG in SODIUM CHLORIDE 0.9% INJ 100 ML IV SCH (15:22)
[2016-09-30] MEDS ORDERED: SODIUM CHLOR 0.9% 1000 ML INJ 1,000 ML IV SCH (15:45)
[2016-09-30] MEDS ORDERED: WARFARIN SOD 2 MG TAB PO ONE (16:00)
[2016-09-30] MEDS: PRAVASTATIN SOD 20 MG TAB PO SCH (20:08)
[2016-10-01] VITALS (9 sets, daily range): BP systolic 128–174; BP diastolic 72–93; PULSE 69–74; RESP 18–28; TEMP 96.7–98.1; O2SAT 93–96
[2016-10-01] MEDS: CHLORHEXIDINE GLUCONATE 2 % 1 PACK (2 CLOTHS)(taper/protocol) TOPICAL SCH (03:18)
[2016-10-01] MEDS: methylPREDNISolone SOD SUCC 40 MG/1 ML VIAL IV PUSH SCH ×3 (03:19→19:38)
[2016-10-01] MEDS: INSULIN ASPART SUPPLEMENTAL SCALE SQ SCH ×4 (05:08→20:03)
[2016-10-01] MEDS: ISOSORBIDE MONONITRATE 60 MG TAB PO SCH (07:59)
[2016-10-01] MEDS: ASPIRIN EC 81 MG TABEC PO SCH (07:59)
[2016-10-01] MEDS: METOPROLOL TARTRATE 25 MG TAB PO SCH ×2 (07:59→19:38)
[2016-10-01] MEDS: INSULIN HUMAN NPH 1,000 UNITS/10 ML VIAL SQ SCH ×2 (08:00→17:32)
[2016-10-01] MEDS: SODIUM CHLORIDE 0.9% FLUSH 10 ML FLUSH IV FLUSH SCH ×2 (08:02→19:38)
[2016-10-01 10:35] LABS: INTERNATIONAL NORMALIZED RATIO 1.9 RATIO; PROTHROMBIN TIME - PATIENT 21.4 SEC (9.8-11.6)
[2016-10-01 10:58] LABS: ANION GAP 10 MEQ/L (5-15); BICARBONATE 24.5 MEQ/L (21.0-32.0); BLOOD UREA NITROGEN 36 MG/DL (7-18); CHLORIDE 105 MEQ/L (98-107); GLOMERULAR FILTRATION RATE 56 ML/MIN (>89); POTASSIUM 4.6 MEQ/L (3.5-5.1); SODIUM (NA) 139 MEQ/L (136-145)
[2016-10-01 11:32] LABS: HEMOGLOBIN A1a 1.2 %; HEMOGLOBIN Ao 81.3 %; HEMOGLOBIN LA1C 2.7 %; HEMOGLOBIN P3 6.2 %
--- NOTE | 2016-10-01 12:21 | HHI.PR ---
Subjective Remarks Follow up COPD ex/Respiratory failure 10/01/16-patient seen and examined; still with some shortness of breath and exp wheezings. + cough production however afebrile Objective Vitals Vital Signs Date Time Temp Pulse Resp B/P Pulse Ox O2 Delivery O2 Flow Rate FiO2 10/01/16 08:35 95 21 10/01/16 08:00 69 10/01/16 08:00 98.0 69 24 158/93 95 10/01/16 04:00 69 10/01/16 04:00 97.9 69 25 142/81 94 10/01/16 00:00 97.6 69 26 128/74 93 10/01/16 00:00 69 09/30/16 22:00 69 09/30/16 21:00 94 21 09/30/16 20:00 69 09/30/16 20:00 97.7 69 29 138/76 94 09/30/16 18:00 69 09/30/16 16:00 69 09/30/16 16:00 97.8 69 19 127/71 95 09/30/16 14:00 69 I/O 09/30/16 09/30/16 09/30/16 10/01/16 10/01/16 10/01/16 07:00 15:00 23:00 07:00 15:00 23:00 Intake Total 240 ml 700 ml 1060 ml 528 ml Output Total 300 ml 650 ml 500 ml 750 ml Balance -60 ml 50 ml 560 ml -222 ml Intake Oral 240 ml 600 ml 720 ml 240 ml IV Total 100 ml 340 ml 288 ml Output Urine Total 300 ml 650 ml 500 ml 750 ml Stool Total 0 ml # Bowel Movements 1 0 0 Result Diagram: 09/29/16 0400 10/01/16 0954 Imaging Last Impressions Chest X-Ray 09/28/16 1355 Signed Impressions: Service Date/Time: Wednesday, September 28, 2016 14:05 - CONCLUSION: 1. Cardiomegaly with left basilar density. 2. Small pleural effusion on the left. Rambo Hare MD Objective Remarks GENERAL: NAD SKIN: Warm and dry. HEAD: Normocephalic. EYES: No scleral icterus. No injection or drainage. NECK: Supple, trachea midline. No JVD or lymphadenopathy. CARDIOVASCULAR: Regular rate and rhythm without murmurs, gallops, or rubs. RESPIRATORY: Breath sounds equal bilaterally. No accessory muscle use.+ exp wheezings GASTROINTESTINAL: Abdomen soft, non-tender, nondistended. MUSCULOSKELETAL: No cyanosis, or edema. BACK: Nontender without obvious deformity. No CVA tenderness. A/P Problem List: (1) COPD exacerbation ICD Code: J44.1 Status: Acute (2) DM type 2 (diabetes mellitus, type 2) ICD Code: E11.9 Status: Chronic (3) Hypertension ICD Code: I10 Status: Chronic (4) Hyperlipidemia ICD Code: E78.5 Status: Chronic Assessment and Plan 76 yrs old man with COPD exa - Continue ceftriaxone and azithromycin. - continue Solu-Medrol 40 mg IV every 8 hours - Repeat echocardiogram.- EF 60-65% - Duo nebs and oxygen as needed. Add Symbicort and Spiriva - Sputum culture and Gram stain- negative Acute renal insufficiency Improving Hyperkalemia- -Resolved s/p Kayexalate x 1 - Hold lisinopril - Avoid nephrotoxic agents. Diabetes Mellitus type 2.BG Labile - Increase Levemir to 25 units BID and change sliding scale to medium History atrial fibrillation Continue with Lopressor, Coumadin and monitor INR/PT History of diastolic congestive heart failure No exacerbation, continue with Imdur and resume Lasix Hypertension Continue with Norvasc and Lopressor - Hold lisinopril -EF 60-65% Elevated LFTs Total bilirubin is elevated. Unsure of baseline. - Continue to trend LFTs. PPx: Coumadin Rambo Johnson MD October 01, 2016 12:21
[2016-10-01] MEDS ORDERED: GLUCAGON 1 MG/ML VIAL OTHER PRN (12:30)
[2016-10-01] MEDS ORDERED: DEXTROSE 50% IN WATER 50 ML VIAL(D50) IV PRN (12:30)
[2016-10-01] MEDS ORDERED: WARFARIN SOD 2 MG TAB PO SCH (16:00)
[2016-10-01] MEDS: cefTRIAXone INJ 1,000 MG in SODIUM CHLORIDE 0.9% INJ 100 ML IV SCH (17:29)
[2016-10-01] MEDS: AZITHROMYCIN 250 MG TAB PO SCH (17:30)
[2016-10-01] MEDS: WARFARIN SOD 4 MG TAB PO SCH (17:30)
[2016-10-01] MEDS: FUROSEMIDE 20 MG TAB PO SCH (17:30)
[2016-10-01] MEDS: PRAVASTATIN SOD 20 MG TAB PO SCH (19:38)
[2016-10-01] MEDS: RESP: ALBUTEROL 2.5 MG/IPRATROPIUM 0.5 MG NEB (PRN) NEB (20:10)
[2016-10-02] VITALS (8 sets, daily range): BP systolic 132–157; BP diastolic 75–87; PULSE 69–70; RESP 18–29; TEMP 95.4–96.2; O2SAT 93–96
[2016-10-02] MEDS: CHLORHEXIDINE GLUCONATE 2 % 1 PACK (2 CLOTHS)(taper/protocol) TOPICAL SCH (04:00)
[2016-10-02] MEDS: methylPREDNISolone SOD SUCC 40 MG/1 ML VIAL IV PUSH SCH ×3 (04:07→20:05)
[2016-10-02] MEDS: INSULIN ASPART SUPPLEMENTAL SCALE SQ SCH ×4 (06:04→20:15)
[2016-10-02 07:00] LABS: AUTOMATED NEUTROPHIL # 12.1 TH/MM3 (1.8-7.7); BASOPHIL # 0.1 TH/MM3 (0-0.2); BASOPHIL % 0.4 % (0.0-2.0); EOSINOPHIL % 0.1 % (0.0-4.0); HEMATOCRIT 46.3 % (39.0-51.0); HEMO FLAGS DIFF FINAL; LYMPH % 4.5 % (9.0-44.0); LYMPHOCYTE # 0.6 TH/MM3 (1.0-4.8); MEAN CELL VOLUME 83.3 FL (80.0-100.0); MEAN CORPUSCULAR HGB CONC 32.5 % (32.0-36.0); MONO % 4.8 % (0.0-8.0); NEUT % 90.2 % (16.0-70.0); PLATELET COUNT 217 TH/MM3 (150-450); RED BLOOD COUNT 5.56 MIL/MM3 (4.50-5.90); WHITE BLOOD COUNT 13.4 TH/MM3 (4.0-11.0)
[2016-10-02 07:08] LABS: INTERNATIONAL NORMALIZED RATIO 2.4 RATIO; PROTHROMBIN TIME - PATIENT 27.4 SEC (9.8-11.6)
[2016-10-02 07:33] LABS: ALT (GPT) 32 U/L (12-78); ANION GAP 9 MEQ/L (5-15); AST (GOT) 24 U/L (15-37); BICARBONATE 24.1 MEQ/L (21.0-32.0); CHLORIDE 107 MEQ/L (98-107); GLOMERULAR FILTRATION RATE 63 ML/MIN (>89); POTASSIUM 4.1 MEQ/L (3.5-5.1); SODIUM (NA) 140 MEQ/L (136-145)
[2016-10-02 07:38] LABS: ALKALINE PHOSPHATASE 74 U/L (45-117); BLOOD UREA NITROGEN 31 MG/DL (7-18); TOTAL BILIRUBIN ADULT 0.4 MG/DL (0.2-1.0)
[2016-10-02] MEDS: FUROSEMIDE 20 MG TAB PO SCH ×2 (07:56→17:28)
[2016-10-02] MEDS: ASPIRIN EC 81 MG TABEC PO SCH (07:56)
[2016-10-02] MEDS: METOPROLOL TARTRATE 25 MG TAB PO SCH ×2 (07:56→20:05)
[2016-10-02] MEDS: ISOSORBIDE MONONITRATE 60 MG TAB PO SCH (07:56)
[2016-10-02] MEDS: INSULIN HUMAN NPH 1,000 UNITS/10 ML VIAL SQ SCH ×2 (07:59→17:32)
--- NOTE | 2016-10-02 09:38 | HHI.PR ---
Subjective Remarks Follow up COPD ex/Respiratory failure 10/01/16-patient seen and examined; still with some shortness of breath and exp wheezings. + cough production however afebrile 10/02/16-patient seen and examined, patient reports some improvement of shortness of breath as well as wheezing. Currently afebrile and no acute event overnight. States his condition is improving Objective Vitals Vital Signs Date Time Temp Pulse Resp B/P Pulse Ox O2 Delivery O2 Flow Rate FiO2 10/02/16 07:57 95.9 70 27 132/86 96 10/02/16 04:45 96.2 10/02/16 00:50 96.0 70 18 145/78 93 10/01/16 22:23 96.7 74 18 174/88 96 10/01/16 20:12 93 21 10/01/16 20:00 98.1 69 28 146/79 94 10/01/16 20:00 69 10/01/16 16:00 69 10/01/16 16:00 98.0 69 20 144/72 95 10/01/16 12:00 69 10/01/16 12:00 97.9 69 22 141/78 95 I/O 10/01/16 10/01/16 10/01/16 10/02/16 10/02/16 10/02/16 07:00 15:00 23:00 07:00 15:00 23:00 Intake Total 528 ml 700 ml 240 ml 360 ml Output Total 750 ml 700 ml Balance -222 ml 0 ml 240 ml 360 ml Intake Oral 240 ml 600 ml 240 ml 360 ml IV Total 288 ml 100 ml Output Urine Total 750 ml 700 ml # Voids 2 3 # Bowel Movements 0 0 0 1 Result Diagram: 10/02/16 0615 10/02/16 0613 Imaging Last Impressions Chest X-Ray 09/28/16 3885 Signed Impressions: Service Date/Time: Wednesday, September 28, 2016 14:05 - CONCLUSION: 1. Cardiomegaly with left basilar density. 2. Small pleural effusion on the left. Rambo Hare MD Objective Remarks GENERAL: NAD SKIN: Warm and dry. HEAD: Normocephalic. EYES: No scleral icterus. No injection or drainage. NECK: Supple, trachea midline. No JVD or lymphadenopathy. CARDIOVASCULAR: Regular rate and rhythm without murmurs, gallops, or rubs. RESPIRATORY: Breath sounds equal bilaterally. No accessory muscle use.+ exp wheezings GASTROINTESTINAL: Abdomen soft, non-tender, nondistended. MUSCULOSKELETAL: No cyanosis, or edema. BACK: Nontender without obvious deformity. No CVA tenderness. Procedures none A/P Problem List: (1) COPD exacerbation ICD Code: J44.1 Status: Acute (2) DM type 2 (diabetes mellitus, type 2) ICD Code: E11.9 Status: Chronic (3) Hypertension ICD Code: I10 Status: Chronic (4) Hyperlipidemia ICD Code: E78.5 Status: Chronic Assessment and Plan 76 yrs old man with COPD exa - Continue ceftriaxone and azithromycin. - continue Solu-Medrol 40 mg IV every 8 hours - 2 echocardiogram.- EF 60-65% - Duo nebs and oxygen as needed. Continue Symbicort and Spiriva - Sputum culture and Gram stain- negative Acute renal insufficiency Improving Hyperkalemia- -Resolved s/p Kayexalate x 1 - Hold lisinopril - Avoid nephrotoxic agents. Diabetes Mellitus type 2.improving, continue Levemir to 25 units BID and medium sliding scale History atrial fibrillation Continue with Lopressor, Coumadin and monitor INR/PT History of diastolic congestive heart failure No exacerbation, continue with Imdur and Lasix Hypertension Continue with Norvasc and Lopressor - Hold lisinopril -EF 60-65% Elevated LFTs Total bilirubin is elevated. Unsure of baseline. - Continue to trend LFTs. PPx: Coumadin Rambo Johnson MD October 02, 2016 09:38
[2016-10-02] MEDS: RESP: ALBUTEROL 2.5 MG/IPRATROPIUM 0.5 MG NEB (PRN) NEB (15:06)
[2016-10-02] MEDS: cefTRIAXone INJ 1,000 MG in SODIUM CHLORIDE 0.9% INJ 100 ML IV SCH (17:28)
[2016-10-02] MEDS: WARFARIN SOD 4 MG TAB PO SCH (17:28)
[2016-10-02] MEDS: AZITHROMYCIN 250 MG TAB PO SCH (17:28)
[2016-10-02] MEDS: PRAVASTATIN SOD 20 MG TAB PO SCH (20:05)
[2016-10-02] MEDS: SODIUM CHLORIDE 0.9% FLUSH 10 ML FLUSH IV FLUSH SCH (21:00)
[2016-10-03 00:28] VITALS: TEMP 96.8
[2016-10-03 00:29] VITALS: TEMP 95.8
[2016-10-03] MEDS: CHLORHEXIDINE GLUCONATE 2 % 1 PACK (2 CLOTHS)(taper/protocol) TOPICAL SCH (04:24)
[2016-10-03] MEDS: methylPREDNISolone SOD SUCC 40 MG/1 ML VIAL IV PUSH SCH ×2 (04:24→16:40)
[2016-10-03] MEDS: INSULIN ASPART SUPPLEMENTAL SCALE SQ SCH ×4 (07:00→20:33)
[2016-10-03 07:35] VITALS: BP 165/86; PULSE 70; RESP 25; TEMP 95.6; O2SAT 94
[2016-10-03 07:50] LABS: INTERNATIONAL NORMALIZED RATIO 3.9 RATIO; PROTHROMBIN TIME - PATIENT 45.5 SEC (9.8-11.6)
[2016-10-03] MEDS: INSULIN HUMAN NPH 1,000 UNITS/10 ML VIAL SQ SCH ×2 (09:52→16:51)
[2016-10-03] MEDS: ISOSORBIDE MONONITRATE 60 MG TAB PO SCH (09:53)
[2016-10-03] MEDS: METOPROLOL TARTRATE 25 MG TAB PO SCH ×2 (09:53→20:23)
[2016-10-03] MEDS: ASPIRIN EC 81 MG TABEC PO SCH (09:53)
[2016-10-03] MEDS: FUROSEMIDE 20 MG TAB PO SCH ×2 (09:54→16:40)
[2016-10-03] MEDS: SODIUM CHLORIDE 0.9% FLUSH 10 ML FLUSH IV FLUSH SCH ×2 (09:54→20:23)
--- NOTE | 2016-10-03 11:12 | HHI.PR ---
Subjective Remarks Follow up COPD ex/Respiratory failure 10/01/16-patient seen and examined; still with some shortness of breath and exp wheezings. + cough production however afebrile 10/02/16-patient seen and examined, patient reports some improvement of shortness of breath as well as wheezing. Currently afebrile and no acute event overnight. States his condition is improving 10/03/16-patient seen and examined, reports significant improvement of shortness of breath. by the bedside. Afebrile. Taking by mouth without any complication nausea and vomiting. Objective Vitals Vital Signs Date Time Temp Pulse Resp B/P Pulse Ox O2 Delivery O2 Flow Rate FiO2 10/03/16 07:35 95.6 70 25 165/86 94 10/03/16 00:28 96.8 10/02/16 23:32 95.8 69 28 157/85 94 10/02/16 19:39 96.0 70 27 148/75 94 10/02/16 15:57 95.4 70 27 153/79 94 10/02/16 11:33 95.6 70 29 150/87 94 I/O 10/02/16 10/02/16 10/02/16 10/03/16 10/03/16 10/03/16 07:00 15:00 23:00 07:00 15:00 23:00 Intake Total 360 ml 720 ml 480 ml 360 ml Balance 360 ml 720 ml 480 ml 360 ml Intake Oral 360 ml 720 ml 480 ml 360 ml # Voids 3 4 3 3 # Bowel Movements 1 0 0 0 Result Diagram: 10/02/16 0615 10/02/16 0613 Imaging Last Impressions Chest X-Ray 09/28/16 5935 Signed Impressions: Service Date/Time: Wednesday, September 28, 2016 14:05 - CONCLUSION: 1. Cardiomegaly with left basilar density. 2. Small pleural effusion on the left. Rambo Hare MD Objective Remarks GENERAL: NAD SKIN: Warm and dry. HEAD: Normocephalic. EYES: No scleral icterus. No injection or drainage. NECK: Supple, trachea midline. No JVD or lymphadenopathy. CARDIOVASCULAR: Regular rate and rhythm without murmurs, gallops, or rubs. RESPIRATORY: Breath sounds equal bilaterally. No accessory muscle use. GASTROINTESTINAL: Abdomen soft, non-tender, nondistended. MUSCULOSKELETAL: No cyanosis, or edema. BACK: Nontender without obvious deformity. No CVA tenderness. Procedures none A/P Problem List: (1) COPD exacerbation ICD Code: J44.1 Status: Acute (2) DM type 2 (diabetes mellitus, type 2) ICD Code: E11.9 Status: Chronic (3) Hypertension ICD Code: I10 Status: Chronic (4) Hyperlipidemia ICD Code: E78.5 Status: Chronic Assessment and Plan 76 yrs old man with COPD exa-improving - Continue ceftriaxone and azithromycin. - Change Solu-Medrol 40 mg IV every 8 hours to 12 hours - 2 echocardiogram.- EF 60-65% - Duo nebs and oxygen as needed. Continue Symbicort and Spiriva - Sputum culture and Gram stain- negative -Walk test prior to discharge Acute renal insufficiency Improving Hyperkalemia- -Resolved s/p Kayexalate x 1 - Hold lisinopril - Avoid nephrotoxic agents. Diabetes Mellitus type 2.improving, continue Levemir 25 units BID and medium sliding scale History atrial fibrillation Continue with Lopressor, Coumadin and monitor INR/PT. However INR supratherapeutic today History of diastolic congestive heart failure No exacerbation, continue with Imdur and Lasix. Resume lisinopril Hypertension Continue with Norvasc and Lopressor - Resume lisinopril -EF 60-65% Elevated LFTs Total bilirubin is elevated. Unsure of baseline. - Continue to trend LFTs. PPx: Coumadin Rambo Johnson MD October 03, 2016 11:12
[2016-10-03 11:38] VITALS: BP 145/80; PULSE 70; RESP 24; TEMP 95.3; O2SAT 94
[2016-10-03 15:40] VITALS: BP 153/83; PULSE 70; RESP 25; TEMP 96; O2SAT 95
[2016-10-03] MEDS: ARTIFICIAL TEARS OPTH SOLN 15 ML BTL EACH EYE SCH ×3 (16:38→20:23)
[2016-10-03] MEDS: AZITHROMYCIN 250 MG TAB PO SCH (16:39)
[2016-10-03] MEDS: cefTRIAXone INJ 1,000 MG in SODIUM CHLORIDE 0.9% INJ 100 ML IV SCH (16:39)
[2016-10-03 19:00] VITALS: BP 168/85; PULSE 69; RESP 21; TEMP 96; O2SAT 94
[2016-10-03] MEDS: PRAVASTATIN SOD 20 MG TAB PO SCH (20:22)
[2016-10-04 00:09] VITALS: BP 144/77; PULSE 70; RESP 16; TEMP 95.7; O2SAT 95
[2016-10-04 04:00] VITALS: BP 148/81; PULSE 68; RESP 17; TEMP 96.3; O2SAT 94
[2016-10-04] MEDS: methylPREDNISolone SOD SUCC 40 MG/1 ML VIAL IV PUSH SCH (05:20)
[2016-10-04] MEDS: INSULIN ASPART SUPPLEMENTAL SCALE SQ SCH (07:27)
[2016-10-04 07:33] VITALS: BP 143/89; PULSE 70; RESP 19; TEMP 95.2; O2SAT 96
[2016-10-04] MEDS ORDERED: LISINOPRIL 10 MG TAB PO SCH (09:00)
[2016-10-04] MEDS: FUROSEMIDE 20 MG TAB PO SCH (09:05)
[2016-10-04] MEDS: METOPROLOL TARTRATE 25 MG TAB PO SCH (09:05)
[2016-10-04] MEDS: ASPIRIN EC 81 MG TABEC PO SCH (09:06)
[2016-10-04] MEDS: ISOSORBIDE MONONITRATE 60 MG TAB PO SCH (09:06)
[2016-10-04] MEDS: SODIUM CHLORIDE 0.9% FLUSH 10 ML FLUSH IV FLUSH SCH (09:07)
[2016-10-04] MEDS: ARTIFICIAL TEARS OPTH SOLN 15 ML BTL EACH EYE SCH (09:07)
[2016-10-04] MEDS: INSULIN HUMAN NPH 1,000 UNITS/10 ML VIAL SQ SCH (09:12)
[2016-10-04 09:56] LABS: INTERNATIONAL NORMALIZED RATIO 3.3 RATIO; PROTHROMBIN TIME - PATIENT 38.1 SEC (9.8-11.6)
[2016-10-04] MEDS ORDERED: NOVONP2 SQ (09:56)
[2016-10-04] MEDS ORDERED: PRED10PA PO (09:56)
[2016-10-04] MEDS ORDERED: IPRA17I INH (09:56)
[2016-10-04] MEDS ORDERED: SPIRCAP INH (09:56)
[2016-10-04] MEDS ORDERED: AZIT250T3 PO (09:58)
--- NOTE | 2016-10-04 10:02 | HHI.PR ---
Subjective Remarks Follow up COPD ex/Respiratory failure 10/01/16-patient seen and examined; still with some shortness of breath and exp wheezings. + cough production however afebrile 10/02/16-patient seen and examined, patient reports some improvement of shortness of breath as well as wheezing. Currently afebrile and no acute event overnight. States his condition is improving 10/03/16-patient seen and examined, reports significant improvement of shortness of breath. by the bedside. Afebrile. Taking by mouth without any complication nausea and vomiting. 10/04/16-patient seen and examined, status he is feeling much better now and he is ready for discharge home Objective Vitals Vital Signs Date Time Temp Pulse Resp B/P Pulse Ox O2 Delivery O2 Flow Rate FiO2 10/04/16 07:33 95.2 70 19 143/89 96 10/04/16 04:00 96.3 68 17 148/81 94 10/04/16 00:09 95.7 70 16 144/77 95 10/03/16 19:00 96.0 69 21 168/85 94 10/03/16 15:40 96.0 70 25 153/83 95 10/03/16 11:38 95.3 70 24 145/80 94 I/O 10/03/16 10/03/16 10/03/16 10/04/16 10/04/16 10/04/16 07:00 15:00 23:00 07:00 15:00 23:00 Intake Total 360 ml 960 ml 480 ml 240 ml Output Total 3 ml Balance 360 ml 960 ml 480 ml 237 ml Intake Oral 360 ml 960 ml 480 ml 240 ml Output Urine Total 3 ml # Voids 3 4 3 # Bowel Movements 0 1 0 0 Result Diagram: 10/02/1615 10/02/1613 Objective Remarks GENERAL: NAD SKIN: Warm and dry. HEAD: Normocephalic. EYES: No scleral icterus. No injection or drainage. NECK: Supple, trachea midline. No JVD or lymphadenopathy. CARDIOVASCULAR: Regular rate and rhythm without murmurs, gallops, or rubs. RESPIRATORY: Breath sounds equal bilaterally. No accessory muscle use. GASTROINTESTINAL: Abdomen soft, non-tender, nondistended. MUSCULOSKELETAL: No cyanosis, or edema. BACK: Nontender without obvious deformity. No CVA tenderness. Procedures none A/P Problem List: (1) COPD exacerbation ICD Code: J44.1 Status: Acute (2) DM type 2 (diabetes mellitus, type 2) ICD Code: E11.9 Status: Chronic (3) Hypertension ICD Code: I10 Status: Chronic (4) Hyperlipidemia ICD Code: E78.5 Status: Chronic Assessment and Plan 76 yrs old man with COPD exa-Resolved - Continue ceftriaxone and azithromycin. - d/c Solu-Medrol 40 mg IV every 12 hours and start prednisone - 2 echocardiogram.- EF 60-65% - Duo nebs and oxygen as needed. Continue Symbicort and Spiriva - Sputum culture and Gram stain- negative -Passed Walk test Acute renal insufficiency Improving Hyperkalemia- -Resolved s/p Kayexalate x 1 - Avoid nephrotoxic agents. Diabetes Mellitus type 2.improving, continue Levemir 25 units BID and medium sliding scale History atrial fibrillation Continue with Lopressor, Coumadin and monitor INR/PT. However INR supratherapeutic History of diastolic congestive heart failure No exacerbation, continue with Imdur and Lasix. Resume lisinopril Hypertension Continue with Norvasc and Lopressor as well as lisinopril -EF 60-65% Elevated LFTs Total bilirubin is elevated. Unsure of baseline. - Continue to trend LFTs. PPx: Coumadin Rambo Johnson MD October 04, 2016 10:02
--- NOTE | 2016-10-04 10:04 | HHI.DS ---
Discharge Summary Admission Date September 28, 2016 at 17:37 Discharge Date: October 04, 2016 Admitting Diagnosis pneumonia, CHF exacerbation (1) COPD exacerbation ICD Code: J44.1 (2) DM type 2 (diabetes mellitus, type 2) ICD Code: E11.9 (3) Hypertension ICD Code: I10 (4) Hyperlipidemia ICD Code: E78.5 Procedures none Brief History - From Admission The patient is a 76-year-old male with a past medical history of heart failure who is presenting to the hospital with shortness of breath. The patient says he has had a cough over the past month. He says that cough has been productive but he is unable to describe what color the mucus has been. He says he has been having coughing fits which are worse at night. He says he recently went to [place] where it was cold and he developed cold-like symptoms. He endorsed chills and congestion. He has also had increasing shortness of breath. He has been noticing weight gain. He says his legs are swollen. He says over the years he has had 8 episodes of heart failure exacerbation. He says at night he sleeps on the left side of his body because he read that was better for you. He says today he had a fever. He went to the [place] where he was referred to the hospital. He has been having a headache. He says his appetite has been poor. He has been ambulating without a cane or a walker. He says he takes 2 water pills daily. CBC/BMP: 10/02/16 0615 10/02/16 0613 Significant Findings Laboratory Tests Test 10/02/16 10/02/16 10/03/16 06:13 06:15 06:18 Blood Urea Nitrogen 31 MG/DL (7-18) Estimat Glomerular Filtration 63 ML/MIN (>89) Rate Random Glucose 180 MG/DL (74-106) Albumin 3.2 GM/DL (3.4-5.0) White Blood Count 13.4 TH/MM3 (4.0-11.0) Neutrophils (%) (Auto) 90.2 % (16.0-70.0) Lymphocytes (%) (Auto) 4.5 % (9.0-44.0) Neutrophils # (Auto) 12.1 TH/MM3 (1.8-7.7) Lymphocytes # (Auto) 0.6 TH/MM3 (1.0-4.8) Prothrombin Time 27.4 SEC 45.5 SEC (9.8-11.6) (9.8-11.6) PE at Discharge GENERAL: NAD SKIN: Warm and dry. HEAD: Normocephalic. EYES: No scleral icterus. No injection or drainage. NECK: Supple, trachea midline. No JVD or lymphadenopathy. CARDIOVASCULAR: Regular rate and rhythm without murmurs, gallops, or rubs. RESPIRATORY: Breath sounds equal bilaterally. No accessory muscle use. GASTROINTESTINAL: Abdomen soft, non-tender, nondistended. MUSCULOSKELETAL: No cyanosis, or edema. BACK: Nontender without obvious deformity. No CVA tenderness. Hospital Course He is admitted secondary to COPD exacerbation with respiratory failure for which he was treated with IV Solu-Medrol, bronchodilators, antibiotics as well as oxygen to maintain saturation above 90%. Patient responded well to treatment over the course of several days. Physical therapy was consulted. Renal function improved with IV fluid hydrations. Diabetic medications were adjusted and patient will be discharged home on Levemir 25 units subcutaneous every 12 hours. All electrolyte abnormalities were corrected accordingly. Pt Condition on Discharge: Stable Discharge Disposition: Discharge Home Discharge Time: > 30 minutes Discharge Instructions DIET: Follow Instructions for: Heart Healthy Diet, Diabetic Diet Activities you can perform: Regular-No Restrictions Follow up Referrals: PCP Follow-up - 1 Week New Orders: PT/INR - 2-3 Days New Medications: Azithromycin (Azithromycin) 250 Mg Tab 250 MG PO DAILY Infection #3 Ref 0 TAB Ipratropium HFA 12.9 GM Inh (Atrovent HFA 12.9 GM Inh) 17 Mcg/Act Aer 2 PUFF INH Q6HR PRN SHORTNESS OF BREATH #1 Ref 0 INHALER Prednisone (21) 10 mg tab Dose Pack (Prednisone (21) 10 mg tab Dose Pack) 10 Mg Pack 10 MG PO DIRECTED Inflammation #1 Ref 0 DSPK Tiotropium Inh (Spiriva Handihaler) 18 Mcg Cap 18 MCG INH DAILY 1 capsule = 18 mcg COPD #30 Ref 0 CAP Insulin Human NPH Inj (Novolin N Inj) 1,000 Unit/10 Ml Vial 25 UNITS SQ BID@08,17 Blood Sugar Management #100 INJECTION Continued Medications: Albuterol 18 GM Inh (Ventolin Hfa 18 GM Inh) 90 Mcg/Act Aer 2 PUFF INH TID PRN SHORTNESS OF BREATH #1 Ref 0 INHALER Amlodipine (Amlodipine) 10 Mg Tab 10 MG PO DAILY Blood Pressure Management #[address] Ref [address] (Aspirin EC Low Dose) 81 Mg Tabec 81 MG PO DAILY HEART TAB Furosemide (Lasix) 20 Mg Tab 20 MG PO BID #60 Ref 0 TAB Hypromellose Opth Drops (Isopto Tears Opth Drops) 0.5% Drops 1 DROP EACH EYE QID DRY EYE #15 Ref 0 ML Isosorbide Mononitrate ER (Isosorbide Mononitrate ER) 60 Mg Tab 60 MG PO DAILY ANGINA #30 Ref 0 TAB Lisinopril (Lisinopril) 10 Mg Tab 10 MG PO DAILY #30 Ref 0 TAB Metoprolol Tartrate (Metoprolol Tartrate) 25 Mg Tab 25 MG PO BID HEART & BP #60 Ref 0 TAB Polyvinyl Alcohol Opth (Polyvinyl Alcohol Opth) 1.4% Soln 1 DROP EACH EYE QID Dry Eye #15 ML Simvastatin (Simvastatin) 10 Mg Tab 10 MG PO HS Cholesterol Management #30 Ref 0 TAB Warfarin (Warfarin) 4 Mg Tab 4 MG PO SuTuWeThFrSa Blood Clot Prevention #30 Ref 0 TAB Warfarin (Warfarin) 2 Mg Tab 2 MG PO TUESDAY Blood Clot Prevention #30 Ref 0 TAB Discontinued Medications: Insulin Human NPH Inj (Novolin N Inj) 1,000 Unit/10 Ml Vial 40 UNITS SQ BID Blood Sugar Management #10 Ref 0 ML Rambo Johnson MD October 04, 2016 10:04
== END 2016-10-04 12:22 | disposition home or self-care (01) | DRG 190 ==
LOC: NEPE 13:31 → NEDA 17:37 → HIME 22:15 → HIMW 09-30 08:05 → N06A 10-01 22:02
PROVIDERS: ADMIT Hospitalist; ATTEND Hospitalist
DX: J44.0 Chronic obstructive pulmonary disease with (acute) lower respiratory infection (principal); J96.00 Acute respiratory failure, unspecified whether with hypoxia or hypercapnia; I11.0 Hypertensive heart disease with heart failure; J18.9 Pneumonia, unspecified organism; E11.40 Type 2 diabetes mellitus with diabetic neuropathy, unspecified; E11.65 Type 2 diabetes mellitus with hyperglycemia; I50.32 Chronic diastolic (congestive) heart failure; E87.5 Hyperkalemia; I48.91 Unspecified atrial fibrillation; J44.1 Chronic obstructive pulmonary disease with (acute) exacerbation; E78.5 Hyperlipidemia, unspecified; Z87.891 Personal history of nicotine dependence; Z95.0 Presence of cardiac pacemaker; N28.9 Disorder of kidney and ureter, unspecified; Z79.84 Long term (current) use of oral hypoglycemic drugs; Z79.01 Long term (current) use of anticoagulants; I25.10 Atherosclerotic heart disease of native coronary artery without angina pectoris; Z95.5 Presence of coronary angioplasty implant and graft
CPT/HCPCS: 71010; 80048; 80053; 80076; 81001; 82948; 83036; 83605; 83735; 83880; 84484; 85025; 85610; 85730; 87040; 87449; 87641; 93005; 93306; 94620; 94640; 94664; 96365; 96375; J0456; J0696; J1815; J1940; J2405; J2920; J7030; J7050

== ENCOUNTER 2017-09-24 21:05 | Observation (INO) | payer MEDICARE, OTHER ==
[~2017-09-24 21:05] MED LIST changes: -1-ME1LIQ PO; -ALBU17I INH; +AMLO10TA2 PO; +ASPI81TA22 PO; -ASPI81TA82 PO; +AZIT250T3 PO; -COUM4TAB7 PO; -FISH100020 OR; +FURO1TAB62 PO; +IPRA17I INH; +ISOP0.5S EACH EYE; -LASI20TA PO; -LEVEMIR SQ; -LISI-360 PO; +LISI10TA3 PO; +METO25TA3 PO; -METO50TA PO; -NOVOLOGP2 SQ; +NOVONP2 SQ; +POLY0.052 EACH EYE; +PRED10PA PO; -PRED20 PO; +SIMV10TA PO; -SIMV40TA PO; +SPIRCAP INH; +VENTAER INH; +WARF-20 PO; +WARF4TAB51 PO; -WARF6 PO
[2017-09-24 21:09] VITALS: BP 182/79; PULSE 69; RESP 28; TEMP 98.3; O2SAT 94
[2017-09-24 21:24] VITALS: BP 110/62; PULSE 84; RESP 20; O2SAT 96
[2017-09-24] MEDS ORDERED: methylPREDNISolone SOD SUCC 125 MG/2 ML VIAL IV PUSH ONE (21:30)
[2017-09-24] MEDS ORDERED: SODIUM CHLORIDE 0.9% FLUSH 10 ML FLUSH IVF PRN ×2 (21:30→22:45)
--- NOTE | 2017-09-24 21:42 | PD ---
HPI Chief Complaint: Respiratory Symptoms Time Seen by Provider: 21:25 Travel History International Travel<30 days: No Contact w/Intl Traveler<30days: No Traveled to known affect area: No History of Present Illness HPI 77-year-old male presents with cough and congestion since Tuesday. He states he stopped using his breathing treatments because he was having a hard time getting them in. He states that he has not had any other symptoms that he can recall. [facility] Quality is productive. Severity is frequent. He denies specific modifying factors. Duration is 3 days. He states when he had this before he has had pneumonia. PFSH Past Medical History Hx Anticoagulant Therapy: Yes Atrial Fibrillation: Yes Heart Rhythm Problems: Yes Cardiovascular Problems: Yes High Cholesterol: Yes Chest Pain: Yes Congestive Heart Failure: Yes Diabetes: Yes Patient Takes Glucophage: Yes Diminished Hearing: No Hypertension: Yes Implanted Vascular Access Dvce: Yes Respiratory: Yes Tetanus Vaccination: < 5 Years Influenza Vaccination: Yes Past Surgical History Body Medical Devices: PACER Pacemaker: Yes Other Surgery: Yes (PACEMAKER PLACEMENT x2) Social History Alcohol Use: No Tobacco Use: No Substance Use: No Allergies-Medications (Allergen,Severity, Reaction): Coded Allergies: diatrizoate meglumine (Unverified Allergy, Intermediate, RASH, 12/22/16) gadobenic acid (Unverified Allergy, Intermediate, RASH, 12/22/16) gadodiamide (Unverified Allergy, Intermediate, RASH, 12/22/16) gadoteridol (Unverified Allergy, Intermediate, RASH, 12/22/16) iodixanol (Unverified Allergy, Intermediate, RASH, 12/22/16) iohexol (Unverified Allergy, Intermediate, RASH, 12/22/16) gabapentin (Unverified Allergy, Unknown, DISORIENTATION , 12/22/16) gemfibrozil (Unverified Allergy, Unknown, GI PROBLEM, 12/22/16) metformin (Unverified Allergy, Unknown, GI PROBLEM, 12/22/16) Reported Meds & Prescriptions Reported Meds & Active Scripts Active Azithromycin 250 Mg Tab 250 Mg PO DAILY Spiriva Handihaler (Tiotropium Inh) 18 Mcg Cap 18 Mcg INH DAILY 1 capsule = 18 mcg Atrovent HFA 12.9 GM Inh (Ipratropium [place]) 17 Mcg/Act Aer 2 Puff INH Q6HR PRN Prednisone (21) 10 mg tab Dose Pack (Prednisone) 10 Mg Pack 10 Mg PO DIRECTED Novolin N Inj (Insulin Human NPH) 1,000 Unit/10 Ml Vial 25 Units SQ BID@08,17 Reported Warfarin 2 Mg Tab 2 Mg PO TUESDAY Warfarin 4 Mg Tab 4 Mg PO SUTUWETHFRSA Simvastatin 10 Mg Tab 10 Mg PO HS Metoprolol Tartrate 25 Mg Tab 25 Mg PO BID Lisinopril 10 Mg Tab 10 Mg PO DAILY Isosorbide Mononitrate ER (Isosorbide Mononitrate) 60 Mg Tab 60 Mg PO DAILY Isopto Tears Opth Drops (Hypromellose) 0.5% Drops 1 Drop EACH EYE QID Lasix (Furosemide) 20 Mg Tab 20 Mg PO BID Aspirin EC Low Dose (Aspirin) 81 Mg Tabec 81 Mg PO DAILY Polyvinyl Alcohol Opth (Polyvinyl Alcohol) 1.4% Soln 1 Drop EACH EYE QID Amlodipine (Amlodipine Besylate) 10 Mg Tab 10 Mg PO DAILY Ventolin Hfa 18 GM Inh (Albuterol Sulfate) 90 Mcg/Act Aer 2 Puff INH TID PRN Review of Systems Except as stated in HPI: all other systems reviewed are Neg Physical Exam Narrative GENERAL: 77-year-old male in no apparent distress SKIN: Focused skin assessment warm/dry. HEAD: Atraumatic. Normocephalic. EYES: Pupils equal and round. No scleral icterus. No injection or drainage. ENT: No nasal bleeding or discharge. Mucous membranes pink and moist. NECK: Trachea midline. CARDIOVASCULAR: Regular rate and rhythm. No murmur appreciated. RESPIRATORY: No accessory muscle use. Expiratory wheezing bilaterally. MUSCULOSKELETAL: No obvious deformities. No clubbing. No cyanosis. NEUROLOGICAL: Awake and alert. No obvious cranial nerve deficits. Normal speech. PSYCHIATRIC: Appropriate mood and affect; insight and judgment normal. Data Data Last Documented VS Vital Signs Date Time Temp Pulse Resp B/P (MAP) Pulse Ox O2 Delivery O2 Flow Rate FiO2 09/24/17 23:27 69 18 147/69 (95) 96 09/24/17 21:55 21 09/24/17 21:24 Room Air 09/24/17 21:09 98.3 Orders Orders Complete Blood Count With Diff (09/24/17 21:25) Basic Metabolic Panel (Bmp) (09/24/17 21:25) Influenzae A/B Antigen (09/24/17 21:25) Iv Access Insert/Monitor (09/24/17 21:25) Electrocardiogram (09/24/17 21:25) Ecg Monitoring (09/24/17 21:25) Oximetry (09/24/17 21:25) Chest, Pa & Lat (09/24/17 21:25) Sodium Chloride 0.9% Flush (Ns Flush) (09/24/17 21:30) Methylprednisolone So Succ Inj (Solumedr (09/24/17 21:30) Albuterol-Ipratropium Neb (Duoneb Neb) (09/24/17 21:30) Lactic Acid (09/24/17 21:25) Prothrombin Time / Inr (Pt) (09/24/17 21:28) B-Type Natriuretic Peptide (09/24/17 21:42) Sodium Chloride 0.9% Flush (Ns Flush) (09/24/17 22:45) Ceftriaxone Inj (Rocephin Inj) (09/24/17 22:45) Azithromycin Inj (Zithromax Inj) (09/24/17 22:45) Labs Laboratory Tests Test 09/24/17 21:33 White Blood Count 16.6 TH/MM3 Red Blood Count 5.51 MIL/MM3 Hemoglobin 15.7 GM/DL Hematocrit 47.6 % Mean Corpuscular Volume 86.5 FL Mean Corpuscular Hemoglobin 28.6 PG Mean Corpuscular Hemoglobin Concent 33.1 % Red Cell Distribution Width 13.9 % Platelet Count 228 TH/MM3 Mean Platelet Volume 8.9 FL Neutrophils (%) (Auto) 79.5 % Lymphocytes (%) (Auto) 8.9 % Monocytes (%) (Auto) 10.2 % Eosinophils (%) (Auto) 1.0 % Basophils (%) (Auto) 0.4 % Neutrophils # (Auto) 13.2 TH/MM3 Lymphocytes # (Auto) 1.5 TH/MM3 Monocytes # (Auto) 1.7 TH/MM3 Eosinophils # (Auto) 0.2 TH/MM3 Basophils # (Auto) 0.1 TH/MM3 CBC Comment DIFF FINAL Differential Comment Prothrombin Time 46.4 SEC Prothromb Time International Ratio 4.6 RATIO Blood Urea Nitrogen 15 MG/DL Creatinine 1.27 MG/DL Random Glucose 110 MG/DL Calcium Level 8.7 MG/DL Sodium Level 145 MEQ/L Potassium Level 4.4 MEQ/L Chloride Level 111 MEQ/L Carbon Dioxide Level 23.4 MEQ/L Anion Gap 11 MEQ/L Estimat Glomerular Filtration Rate 55 ML/MIN Lactic Acid Level 1.2 mmol/L B-Type Natriuretic Peptide 247 PG/ML MDM Medical Decision Making Medical Screen Exam Complete: Yes Emergency Medical Condition: Yes Medical Record Reviewed: Yes (Past history confirmed) Interpretation(s) CBC & BMP Diagram 09/24/17 21:33 Calcium Level 8.7 Last 24 hours Impressions Chest X-Ray 09/24/172124 Signed Impressions: Service Date/Time: Tuesday, September 24, 2017 21:42 - CONCLUSION: 1. Cardiomegaly with left-sided pacemaker. 2. Small left pleural effusion. Rambo Hare MD Differential Diagnosis COPD exacerbation, renal failure, pneumonia, CHF Narrative Course We will check blood work, chest x-ray and dose with duonebs and Solu-Medrol and reevaluate On recheck patient is starting to wheeze and developed tachypnea again will place in observation for COPD exacerbation. Patient agrees to plan. Given leukocytosis and symptoms of cough and congestion was given antibiotics for possible early pneumonia Physician Communication Physician Communication dr [place] agrees to admit Diagnosis Primary Impression: COPD exacerbation Additional Impression: Supratherapeutic INR Admitting Information Admitting Physician Requests: Observation Florinda Rosas MD September 24, 2017 21:42
[2017-09-24] MEDS: RESP: ALBUTEROL 2.5 MG/IPRATROPIUM 0.5 MG NEB (SCH) INH ×2 (21:54→21:55)
[2017-09-24 21:55] VITALS: O2SAT 96
--- NOTE | 2017-09-24 21:56 | RADRPT ---
EXAM DATE/TIME: 09/24/2017 21:42 [facility] COMPARISON: No previous studies available for comparison. INDICATIONS : Chest pain, cough, and shortness of breath. MEDICAL HISTORY : Hypertension. Congestive heart failure. AFIB. SURGICAL HISTORY : Pacemaker. ENCOUNTER: Initial ACUITY: 3 days PAIN SCORE: 5/10 LOCATION: chest FINDINGS: PA and lateral views of the chest demonstrate the lungs to be hyper aerated without evidence of mass, infiltrate or effusion. Cardiomegaly with left sided pacemaker. Pleural thickening on the left and p robable small pleural effusion. No The cardiomediastinal contours are unremarkable. Osseous structur es are intact. CONCLUSION: 1. Cardiomegaly with left-sided pacemaker. 2. Small left pleural effusion. Rambo Hare MD on September 24, 2017 at 21:54 Board Certified Radiologist. This report was verified electronically.
[2017-09-24 22:15] LABS: AUTOMATED NEUTROPHIL # 13.2 TH/MM3 (1.8-7.7); BASOPHIL # 0.1 TH/MM3 (0-0.2); BASOPHIL % 0.4 % (0.0-2.0); EOSINOPHIL # 0.2 TH/MM3 (0-0.4); HEMATOCRIT 47.6 % (39.0-51.0); HEMOGLOBIN 15.7 GM/DL (13.0-17.0); LYMPH % 8.9 % (9.0-44.0); LYMPHOCYTE # 1.5 TH/MM3 (1.0-4.8); MEAN CELL VOLUME 86.5 FL (80.0-100.0); MEAN CORPUSCULAR HEMOGLOBIN 28.6 PG (27.0-34.0); MEAN CORPUSCULAR HGB CONC 33.1 % (32.0-36.0); MEAN PLATELET VOLUME 8.9 FL (7.0-11.0); MONO % 10.2 % (0.0-8.0); MONOCYTE # 1.7 TH/MM3 (0-0.9); NEUT % 79.5 % (16.0-70.0); PLATELET COUNT 228 TH/MM3 (150-450); RED BLOOD COUNT 5.51 MIL/MM3 (4.50-5.90); RED CELL DISTRIBUTION WIDTH 13.9 % (11.6-17.2); WHITE BLOOD COUNT 16.6 TH/MM3 (4.0-11.0)
[2017-09-24 22:21] LABS: INTERNATIONAL NORMALIZED RATIO 4.6 RATIO; PROTHROMBIN TIME - PATIENT 46.4 SEC (9.8-11.6)
[2017-09-24 22:27] LABS: BICARBONATE 23.4 MEQ/L (21.0-32.0); CALCIUM 8.7 MG/DL (8.5-10.1); CREATININE 1.27 MG/DL (0.60-1.30)
[2017-09-24] MEDS ORDERED: AZITHROMYCIN INJ 500 MG in SODIUM CHLOR 0.9% 250 ML INJ 250 ML IV ONE (22:45)
[2017-09-24] MEDS ORDERED: cefTRIAXone INJ 1,000 MG in SODIUM CHLORIDE 0.9% INJ 100 ML IV ONE (22:45)
[2017-09-24 23:27] VITALS: BP 147/69; PULSE 69; RESP 18; O2SAT 96
[2017-09-25] VITALS (7 sets, daily range): BP systolic 106–143; BP diastolic 55–67; PULSE 69–73; RESP 16–18; TEMP 97.4–97.7; O2SAT 93–95
[2017-09-25] MEDS ORDERED: CEPH-460 PO (00:54)
[2017-09-25] MEDS ORDERED: PRED50 PO (00:54)
[2017-09-25] MEDS ORDERED: ACETAMINOPHEN/HYDROcodone 325 MG/5 MG TAB PO PRN (03:00)
[2017-09-25] MEDS ORDERED: SODIUM CHLORIDE 0.9% FLUSH 10 ML FLUSH IV FLUSH PRN (03:00)
[2017-09-25] MEDS ORDERED: ACETAMINOPHEN/HYDROcodone 325 MG/10 MG TAB PO PRN (03:00)
[2017-09-25] MEDS ORDERED: SENNOSIDES 8.6 MG TAB PO PRN (03:00)
[2017-09-25] MEDS ORDERED: GLUCAGON 1 MG/ML VIAL OTHER PRN (03:00)
[2017-09-25] MEDS ORDERED: ACETAMINOPHEN 325 MG TAB PO PRN (03:00)
[2017-09-25] MEDS ORDERED: LACTULOSE SYRUP 20 GM/30 ML CUP PO PRN (03:00)
[2017-09-25] MEDS ORDERED: DEXTROSE 50% IN WATER 50 ML VIAL(D50) IV PUSH PRN (03:00)
[2017-09-25] MEDS ORDERED: BISACODYL 10 MG SUPP RECTAL PRN (03:00)
[2017-09-25] MEDS ORDERED: MAGNESIUM HYDROXIDE SUSP 30 ML CUP PO PRN (03:00)
[2017-09-25] MEDS ORDERED: METOCLOPRAMIDE HCL 10 MG/2 ML VIAL IV PUSH PRN (03:00)
--- NOTE | 2017-09-25 03:47 | HHI.HP ---
HPI Service [facility] Primary Care Physician [facility] [place] Admission Diagnosis Diagnoses: (1) COPD (chronic obstructive pulmonary disease) Diagnosis: Principal (2) A-fib Diagnosis: Principal (3) DM (diabetes mellitus) Diagnosis: Principal Travel History International Travel<30 Days: No Contact w/Intl Traveler <30 Da: No Traveled to Known Affected Are: No History of Present Illness This is a 77-year-old male with a PMH of A. fib on Coumadin, HTN, DM, COPD and CHF (Echo 09/29/2016 with EF 60-65%) who presented to the ER with complaints of progressive SOB and wheezing x3 days. Visiting from [place] for a wedding and states he forgot to bring his home nebulizers. Reports productive cough w/ brown-colored sputum. No fever or chills. Has been taking NyQuil and Tylenol with no relief. On arrival, BP 182/79, HR 69, O2 sat 94% RA, Afebrile. WBC 16.6. Chemistry unremarkable. BNP 247. INR 4.6 CXR with cardiomegaly and pacemaker, small left pleural effusion. S/p DuoNeb and Solu-Medrol in ER w/ mild improvement. Review of Systems Except as stated in HPI: all other systems reviewed are Neg ROS: 14 point review of systems otherwise negative. Past Family Social History Past Medical History PMH: A. fib on Coumadin, HTN, DM, COPD and CHF (Echo 09/29/2016 with EF 60-65%) Past Surgical History PAST SURGICAL HISTORY: Pacemaker Allergies: Coded Allergies: diatrizoate meglumine (Unverified Allergy, Intermediate, RASH, 12/22/16) gadobenic acid (Unverified Allergy, Intermediate, RASH, 12/22/16) gadodiamide (Unverified Allergy, Intermediate, RASH, 12/22/16) gadoteridol (Unverified Allergy, Intermediate, RASH, 12/22/16) iodixanol (Unverified Allergy, Intermediate, RASH, 12/22/16) iohexol (Unverified Allergy, Intermediate, RASH, 12/22/16) gabapentin (Unverified Allergy, Unknown, DISORIENTATION , 12/22/16) gemfibrozil (Unverified Allergy, Unknown, GI PROBLEM, 12/22/16) metformin (Unverified Allergy, Unknown, GI PROBLEM, 12/22/16) Family History PAST FAMILY HISTORY: Reviewed. No h/o DM or CAD Social History PAST SOCIAL HISTORY: Negative for alcohol, tobacco or drugs. Physical Exam Vital Signs Vital Signs Date Time Temp Pulse Resp B/P (MAP) Pulse Ox O2 Delivery O2 Flow Rate FiO2 09/24/17 23:27 69 18 147/69 (95) 96 09/24/17 21:55 96 21 09/24/17 21:24 84 20 110/62 (78) 96 Room Air 09/24/17 21:22 20 96 Room Air 09/24/17 21:09 98.3 69 28 182/79 (113) 94 Physical Exam PE: GENERAL: Extremely pleasant elderly white male in no acute distress. at bedside. Intermittent cough HEENT: PERRLA, EOMI. No scleral icterus or conjunctival pallor. No lid lag or facial droop. CARDIOVASCULAR: Regular rate and rhythm. No obvious murmurs to auscultation. No chest tenderness to palpation. RESPIRATORY: No obvious rhonchi. Occasional wheezing. Clear to auscultation. Breath sounds equal bilaterally. GASTROINTESTINAL: Abdomen soft, non-tender, nondistended. BS normal. MUSCULOSKELETAL: Extremities without clubbing, cyanosis, or edema. No obvious deformities. NEUROLOGICAL: Awake, alert and oriented x4. No focal neurologic deficits. Moving both upper and lower extremities spontaneously. Laboratory Laboratory Tests Test 09/24/17 21:33 White Blood Count 16.6 Red Blood Count 5.51 Hemoglobin 15.7 Hematocrit 47.6 Mean Corpuscular Volume 86.5 Mean Corpuscular Hemoglobin 28.6 Mean Corpuscular Hemoglobin Concent 33.1 Red Cell Distribution Width 13.9 Platelet Count 228 Mean Platelet Volume 8.9 Neutrophils (%) (Auto) 79.5 Lymphocytes (%) (Auto) 8.9 Monocytes (%) (Auto) 10.2 Eosinophils (%) (Auto) 1.0 Basophils (%) (Auto) 0.4 Neutrophils # (Auto) 13.2 Lymphocytes # (Auto) 1.5 Monocytes # (Auto) 1.7 Eosinophils # (Auto) 0.2 Basophils # (Auto) 0.1 CBC Comment DIFF FINAL Differential Comment Prothrombin Time 46.4 Prothromb Time International Ratio 4.6 Blood Urea Nitrogen 15 Creatinine 1.27 Random Glucose 110 Calcium Level 8.7 Sodium Level 145 Potassium Level 4.4 Chloride Level 111 Carbon Dioxide Level 23.4 Anion Gap 11 Estimat Glomerular Filtration Rate 55 Lactic Acid Level 1.2 B-Type Natriuretic Peptide 247 Date/Time Source Procedure Growth Status 09/24/17 21:45 Nasal Aspirate Influenza Types A,B Antigen (RAMON) - Final NEGATIVE FOR FLU A AND B ANTIGEN.... Complete Result Diagram: 09/24/17213209/24/172132 Caprini VTE Risk Assessment Caprini VTE Risk Assessment: Mod/High Risk (score >= 2) VTE Pharm Contraindication: Coagulopathy,INR elevated Caprini Risk Assessment Model Point Value = 1 Point Value = 2 Point Value = 3 Point Value = 5 Age 41-60 Minor surgery BMI > 25 kg/m2 Swollen legs Varicose veins or History of unexplained or recurrent spontaneous Oral contraceptives or hormone replacement Sepsis (< 1 month) Serious lung disease, including pneumonia (< 1 month) Abnormal pulmonary function Acute myocardial infarction Congestive heart failure (< 1 month) History of inflammatory bowel disease Medical patient at bed rest Age 61-74 Arthroscopic surgery Major open surgery (> 45 min) Laparoscopic surgery (> 45 min) Malignancy Confined to bed (> 72 hours) Immobilizing plaster cast Central venous access Age >= 75 History of VTE Family history of VTE Factor V Leiden Prothrombin [id number] Lupus anticoagulant Anticardiolipin antibodies Elevated serum homocysteine Heparin-induced thrombocytopenia Other congenital or acquired thrombophilia Stroke (< 1 month) Elective arthroplasty Hip, pelvis, or leg fracture Acute spinal cord injury (< 1 month) Prophylaxis Regimen Total Risk Factor Score Risk Level Prophylaxis Regimen 0-1 Low Early ambulation 2 Moderate Order ONE of the following: *Sequential Compression Device (SCD) *Heparin 5000 units SQ BID 3-4 Higher Order ONE of the following medications: *Heparin 5000 units SQ TID *Enoxaparin/Lovenox 40 mg SQ daily (WT < 150 kg, CrCl > 30 mL/min) *Enoxaparin/Lovenox 30 mg SQ daily (WT < 150 kg, CrCl > 10-29 mL/min) *Enoxaparin/Lovenox 30 mg SQ BID (WT < 150 kg, CrCl > 30 mL/min) AND/OR *Sequential Compression Device (SCD) 5 or more Highest Order ONE of the following medications: *Heparin 5000 units SQ TID (Preferred with Epidurals) *Enoxaparin/Lovenox 40 mg SQ daily (WT < 150 kg, CrCl > 30 mL/min) *Enoxaparin/Lovenox 30 mg SQ daily (WT < 150 kg, CrCl > 10-29 mL/min) *Enoxaparin/Lovenox 30 mg SQ BID (WT < 150 kg, CrCl > 30 mL/min) AND *Sequential Compression Device (SCD) Assessment and Plan Problem List: (1) COPD (chronic obstructive pulmonary disease) ICD Code: J44.9 - Chronic obstructive pulmonary disease, unspecified (2) A-fib ICD Code: I48.91 - Unspecified atrial fibrillation (3) DM (diabetes mellitus) ICD Code: E11.9 - Type 2 diabetes mellitus without complications Assessment and Plan A/P: 1. COPD: Chronic Respiratory Failure w/ Acute Exacerbation. Moderate to Severe. S/p Solu-Medrol and DuoNeb in ER w/ mild improvement, off home nebulizers for almost 1wk. Continue Solu-Medrol, DuoNeb, Symbicort, Mucinex. CXR w/ small left effusion, images reviewed by me. WBC 16 w/ productive sputum , will start Levaquin IV. Check Sputum Cultures. 2. A-fib: Chronic. On Coumadin, INR supratherapeutic at 4.6, no active bleeding, will hold Coumadin, recheck INR in am, resume once therapeutic. 3. DM: Sliding scale w/ Accu-Checks, resume home Insulin 4. DVT Prophylaxis: Hold Coumadin 5. Social work for d/c planning as needed. 6. Case discussed w/ ER physician at length, labs/records/imaging reviewed by me. Diana Ervin MD September 25, 2017 03:47
[2017-09-25] MEDS: methylPREDNISolone SOD SUCC 40 MG/1 ML VIAL IV PUSH SCH ×3 (05:14→17:05)
[2017-09-25] MEDS: INSULIN HUMAN NPH 1,000 UNITS/10 ML VIAL SQ SCH ×2 (08:00→17:00)
[2017-09-25] MEDS: INSULIN ASPART SUPPLEMENTAL SCALE SQ SCH ×4 (08:00→21:04)
[2017-09-25] MEDS: DOCUSATE SODIUM 50 MG/SENNA 8.6 MG TAB PO SCH ×2 (09:00→21:00)
--- NOTE | 2017-09-25 09:00 | HHI.PR ---
Subjective Remarks Follow up for COPD exacerbation. The patient reports feeling slightly better today, however has continued wheezing and nonproductive cough. Denies any significant shortness of breath. Denies any chest pain. Denies fevers or chills. He has no other medical complaints at this time. Objective Vitals Vital Signs Date Time Temp Pulse Resp B/P (MAP) Pulse Ox O2 Delivery O2 Flow Rate FiO2 09/25/17 07:31 97.4 73 18 139/67 (91) 95 09/25/17 05:11 97.7 72 18 139/65 (89) 95 09/25/17 04:47 09/24/17 23:27 69 18 147/69 (95) 96 09/24/17 21:55 96 21 09/24/17 21:24 84 20 110/62 (78) 96 Room Air 09/24/17 21:22 20 96 Room Air 09/24/17 21:09 98.3 69 28 182/79 (113) 94 Result Diagram: 09/24/17213209/24/172132 Imaging Last Impressions Chest X-Ray 09/24/172124 Signed Impressions: Service Date/Time: Sunday, September 24, 2017 21:42 - CONCLUSION: 1. Cardiomegaly with left-sided pacemaker. 2. Small left pleural effusion. Rambo Hare MD Objective Remarks GENERAL: Well-nourished, well-developed pleasant elderly male patient in [facility]. SKIN: Warm and dry. No rash. HEENT: Normocephalic. Atraumatic. Pupils equal and round. Mucous membranes pink and moist. NECK: Trachea midline. CARDIOVASCULAR: Regular rate and rhythm. No murmur appreciated. RESPIRATORY: No accessory muscle use. Diffuse expiratory wheezing throughout all lung liu. Breath sounds equal bilaterally. GASTROINTESTINAL: Abdomen soft, non-tender, nondistended. Normoactive bowel sounds x4. MUSCULOSKELETAL: No obvious deformities. Extremities without clubbing, cyanosis , or edema. NEUROLOGICAL: Awake and alert. No obvious cranial nerve deficits. Motor grossly within normal limits. Moving all extremities spontaneously. Normal speech. PSYCHIATRIC: Appropriate mood and affect; insight and judgment normal. Medications and IVs Current Medications Medications (Trade) Dose Ordered Sig/Lesa Route Start Time Stop Time Status Last Admin (D50w (Vial) Inj) 50 ml UNSCH PRN IV PUSH 09/25/17 03:00 (Glucagon Inj) 1 mg UNSCH PRN OTHER 09/25/17 03:00 (NovoLOG SUPPLEMENTAL SCALE) 1 ACHS SLIDING SCALE SQ 09/25/17 08:00 09/25/17 08:00 (SoluMEDROL INJ) 40 mg Q6HR IV PUSH 09/25/17 06:00 09/25/17 05:14 (Symbicort 160-4.5 Mcg Inh) 2 puff Q12HR INH 09/25/17 09:00 (Mucinex Er) 600 mg BID PO 09/25/17 09:00 09/25/17 09:11 Levofloxacin/ Dextrose 150 ml @ 100 mls/hr Q24H IV 09/25/17 23:00 (NS Flush) 2 ml UNSCH PRN IV FLUSH 09/25/17 03:00 (NS Flush) 2 ml BID IV FLUSH 09/25/17 09:00 09/25/17 09:12 (Reglan Inj) 5 mg Q6H PRN IV PUSH 09/25/17 03:00 (Tylenol) 650 mg Q6H PRN PO 09/25/17 03:00 ([place] 5-325 Mg) 1 tab Q4H PRN PO 09/25/17 03:00 ([place] 10-325 Mg) 1 tab Q4H PRN PO 09/25/17 03:00 (Leidy-Colace) 1 tab BID PO 09/25/17 09:00 (Milk Of Magnesia Liq) 30 ml Q12H PRN PO 09/25/17 03:00 (Senokot) 17.2 mg Q12H PRN PO 09/25/17 03:00 (Dulcolax Supp) 10 mg DAILY PRN RECTAL 09/25/17 03:00 (Lactulose Liq) 30 ml DAILY PRN PO 09/25/17 03:00 (Norvasc) 10 mg DAILY PO 09/25/17 09:00 09/25/17 09:11 (Ecotrin Ec) 81 mg DAILY PO 09/25/17 09:00 09/25/17 09:12 (Lasix) 20 mg BID PO 09/25/17 09:00 09/25/17 09:11 (NovoLIN N INJ) 25 units BID@08,17 SQ 5/20/18 08:00 09/25/17 08:00 (Imdur) 60 mg DAILY PO 09/25/17 09:00 09/25/17 09:12 (Prinivil) 10 mg DAILY PO 09/25/17 09:00 09/25/17 09:11 (Lopressor) 25 mg BID PO 09/25/17 09:00 09/25/17 09:12 (Pravachol) 20 mg HS PO 09/25/17 21:00 A/P Problem List: (1) COPD (chronic obstructive pulmonary disease) ICD Code: J44.9 - Chronic obstructive pulmonary disease, unspecified (2) A-fib ICD Code: I48.91 - Unspecified atrial fibrillation (3) DM (diabetes mellitus) ICD Code: E11.9 - Type 2 diabetes mellitus without complications Assessment and Plan 77-year-old male with a PMH of A. fib on Coumadin, HTN, DM, COPD and CHF (Echo with EF 60-65%) who presented to the ER with complaints of progressive SOB and wheezing x3 days. Acute COPD exacerbation: Moderate to Severe. S/p Solu-Medrol and DuoNeb in ER , with minimal improvement. Off home nebulizers for almost 1wk while on vacation. -CXR w/ small left effusion, images reviewed -Continue IV Solu-Medrol 40mg q6h -DuoNebs qid and q4h prn -Symbicort bid -Mucinex bid. -WBC 16K w/ productive sputum,continue antibiotics with IV Levaquin. -Check Sputum Cultures. A-fib with Supratherapeutic INR: Chronic. Rate controlled. -On Coumadin, INR supratherapeutic at 4.6, no active bleeding, will hold Coumadin -recheck INR in am, resume once therapeutic. DM: Chronic. -Sliding scale w/ Accu-Checks -resume home Insulin DVT Prophylaxis: Holding Coumadin Discharge Planning Discharge pending further clinical improvement. Likely discharge tomorrow. Shama Connor PA-C September 25, 2017 9:00 am
[2017-09-25] MEDS: guaiFENesin E.R. 600 MG TAB PO SCH ×2 (09:11→23:21)
[2017-09-25] MEDS: FUROSEMIDE 20 MG TAB PO SCH ×2 (09:11→23:21)
[2017-09-25] MEDS: LISINOPRIL 10 MG TAB PO SCH (09:11)
[2017-09-25] MEDS: SODIUM CHLORIDE 0.9% FLUSH 10 ML FLUSH IV FLUSH SCH ×2 (09:12→23:22)
[2017-09-25] MEDS: ASPIRIN EC 81 MG TABEC PO SCH (09:12)
[2017-09-25] MEDS: METOPROLOL TARTRATE 25 MG TAB PO SCH ×2 (09:12→23:22)
[2017-09-25] MEDS: ISOSORBIDE MONONITRATE 60 MG CR TAB (IMDUR) PO SCH (09:12)
[2017-09-25] MEDS ORDERED: RESP: ALBUTEROL 2.5 MG/IPRATROPIUM 0.5 MG NEB (SCH) NEB ONE (09:30)
[2017-09-25] MEDS: BUDESONIDE-FORMOTEROL 160/4.5 MCG INHALER INH SCH ×2 (10:55→21:04)
[2017-09-25] MEDS: RESP: ALBUTEROL 2.5 MG/IPRATROPIUM 0.5 MG NEB (SCH) NEB ×3 (11:59→19:44)
[2017-09-25] MEDS ORDERED: RESP: ALBUTEROL 2.5 MG/IPRATROPIUM 0.5 MG NEB (PRN) NEB (13:30)
--- NOTE | 2017-09-25 21:09 | EKG ---
Date Performed: 09/24/2017 Time Performed: 21:29:20 PTAGE: 77 years EKG: ELECTRONIC VENTRICULAR PACEMAKER ABNORMAL RHYTHM ECG PREVIOUS TRACING : 09/28/2016 13.55 Since the previous tracing, no significant change noted DOCTOR: Sina Valdez Interpretating Date/Time 09/25/2017 21:07:27
[2017-09-25] MEDS: PRAVASTATIN SOD 20 MG TAB PO SCH (23:20)
[2017-09-25] MEDS: LEVOFLOXACIN 750 MG PREMIX INJ 150 ML IV SCH (23:22)
[2017-09-26] VITALS (8 sets, daily range): BP systolic 117–133; BP diastolic 59–76; PULSE 67–75; RESP 16–20; TEMP 97.4–98.5; O2SAT 92–98
[2017-09-26] MEDS: methylPREDNISolone SOD SUCC 40 MG/1 ML VIAL IV PUSH SCH ×5 (01:42→23:25)
[2017-09-26 07:56] LABS: AUTOMATED NEUTROPHIL # 19.4 TH/MM3 (1.8-7.7); HEMATOCRIT 43.5 % (39.0-51.0); HEMOGLOBIN 14.4 GM/DL (13.0-17.0); LYMPH % 2.7 % (9.0-44.0); LYMPHOCYTE # 0.6 TH/MM3 (1.0-4.8); MEAN CELL VOLUME 86.8 FL (80.0-100.0); MEAN CORPUSCULAR HEMOGLOBIN 28.7 PG (27.0-34.0); MEAN CORPUSCULAR HGB CONC 33.1 % (32.0-36.0); MEAN PLATELET VOLUME 9.1 FL (7.0-11.0); MONO % 3.6 % (0.0-8.0); MONOCYTE # 0.8 TH/MM3 (0-0.9); NEUT % 93.7 % (16.0-70.0); PLATELET COUNT 210 TH/MM3 (150-450); RED CELL DISTRIBUTION WIDTH 14.5 % (11.6-17.2); WHITE BLOOD COUNT 20.8 TH/MM3 (4.0-11.0)
[2017-09-26] MEDS: INSULIN ASPART SUPPLEMENTAL SCALE SQ SCH ×4 (08:00→23:24)
[2017-09-26] MEDS: INSULIN HUMAN NPH 1,000 UNITS/10 ML VIAL SQ SCH ×2 (08:00→17:00)
[2017-09-26 08:03] LABS: INTERNATIONAL NORMALIZED RATIO 3.8 RATIO; PROTHROMBIN TIME - PATIENT 38.4 SEC (9.8-11.6)
[2017-09-26] MEDS: RESP: ALBUTEROL 2.5 MG/IPRATROPIUM 0.5 MG NEB (SCH) NEB ×4 (08:14→19:29)
[2017-09-26] MEDS ORDERED: NEBULIZER/ADULT1 KIT (08:19)
[2017-09-26] MEDS ORDERED: NEBUKIT5 (08:19)
[2017-09-26] MEDS ORDERED: NEBULIZER1 MI1 (08:19)
--- NOTE | 2017-09-26 08:20 | HHI.FF ---
Face to Face Verification Diagnosis: (1) COPD (chronic obstructive pulmonary disease) (2) DM (diabetes mellitus) (3) A-fib (4) Hypertension (5) Hyperlipidemia (6) Congestive heart failure Home Health Nursing Order: Medical education Signs/symptoms of disease process Diabetic education CHF education Nursing assessment with vital signs I have seen patient Alex Spears on 09/26/17. My clinical findings support the need for the requested home health care services because: Ltd mobility - disease progression Patient has SOB Deconditioned w/ increased weakness Limited ability to care for self I certify that my clinical findings support that this patient is homebound because: Hx COPD- exertion dyspnea/weakness Unsafe to leave home unassisted Unable to use public transportation Shama Connor PA-C September 26, 2017 8:20 am
--- NOTE | 2017-09-26 08:21 | HHI.PR ---
Subjective Remarks Follow up for COPD exacerbation, supratherapeutic INR. The patient reports feeling better today. Still with cough productive of green-brown sputum. Denies fevers/chills. Still with wheeze however improved. Denies any shortness of breath. Ambulating the unit without difficulty. RT able to wean off oxygen with O2 sat 98% on room air. The patient has no other medical complaints at this time. Objective Vitals Vital Signs Date Time Temp Pulse Resp B/P (MAP) Pulse Ox O2 Delivery O2 Flow Rate FiO2 09/26/17 08:18 98 21 09/26/17 07:39 98.4 70 18 121/76 (91) 97 09/26/17 04:08 97.6 70 16 117/59 (78) 92 09/25/17 23:43 97.5 70 16 116/55 (75) 95 09/25/17 19:45 94 21 09/25/17 19:36 97.5 71 16 106/58 (74) 93 09/25/17 15:48 97.6 69 18 115/57 (76) 94 09/25/17 11:28 97.6 73 18 143/66 (91) 95 I/O 09/25/17 09/25/17 09/25/17 09/26/17 09/26/17 09/26/17 07:00 15:00 23:00 07:00 15:00 23:00 Output Total 200 ml Balance -200 ml Output Urine Total 200 ml Result Diagram: 09/26/17 0650 09/24/172132 Imaging Last Impressions Chest X-Ray 09/24/172124 Signed Impressions: Service Date/Time: Sunday, September 24, 2017 21:42 - CONCLUSION: 1. Cardiomegaly with left-sided pacemaker. 2. Small left pleural effusion. Rambo Hare MD Objective Remarks GENERAL: Well-nourished, well-developed pleasant elderly male patient in [facility]. SKIN: Warm and dry. No rash. HEENT: Normocephalic. Atraumatic. Pupils equal and round. Mucous membranes pink and moist. CARDIOVASCULAR: Regular rate and rhythm. No murmur appreciated. RESPIRATORY: No accessory muscle use. Mild diffuse expiratory wheezing throughout all lung liu, improving. Breath sounds equal bilaterally. GASTROINTESTINAL: Abdomen soft, non-tender, nondistended. Normoactive bowel sounds x4. MUSCULOSKELETAL: No obvious deformities. Extremities without clubbing, cyanosis , or edema. NEUROLOGICAL: Awake and alert. No obvious cranial nerve deficits. Motor grossly within normal limits. Moving all extremities spontaneously. Normal speech. PSYCHIATRIC: Appropriate mood and affect; insight and judgment normal. Procedures None. Medications and IVs Current Medications Medications (Trade) Dose Ordered Sig/Lesa Route Start Time Stop Time Status Last Admin (D50w (Vial) Inj) 50 ml UNSCH PRN IV PUSH 09/25/17 03:00 (Glucagon Inj) 1 mg UNSCH PRN OTHER 09/25/17 03:00 (SoluMEDROL INJ) 40 mg Q6HR IV PUSH 09/25/17 06:00 09/26/17 05:21 (Symbicort 160-4.5 Mcg Inh) 2 puff Q12HR INH 09/25/17 09:00 09/26/17 08:30 (Mucinex Er) 600 mg BID PO 09/25/17 09:00 09/26/17 08:29 Levofloxacin/ Dextrose 150 ml @ 100 mls/hr Q24H IV 09/25/17 23:00 09/25/17 23:22 (NS Flush) 2 ml UNSCH PRN IV FLUSH 09/25/17 03:00 (NS Flush) 2 ml BID IV FLUSH 09/25/17 09:00 09/26/17 08:30 (Reglan Inj) 5 mg Q6H PRN IV PUSH 09/25/17 03:00 (Tylenol) 650 mg Q6H PRN PO 09/25/17 03:00 ([place] 5-325 Mg) 1 tab Q4H PRN PO 09/25/17 03:00 ([place] 10-325 Mg) 1 tab Q4H PRN PO 09/25/17 03:00 (Leidy-Colace) 1 tab BID PO 09/25/17 09:00 (Milk Of Magnesia Liq) 30 ml Q12H PRN PO 09/25/17 03:00 (Senokot) 17.2 mg Q12H PRN PO 09/25/17 03:00 (Dulcolax Supp) 10 mg DAILY PRN RECTAL 09/25/17 03:00 (Lactulose Liq) 30 ml DAILY PRN PO 5/20/18 03:00 (Norvasc) 10 mg DAILY PO 09/25/17 09:00 09/26/17 08:29 (Ecotrin Ec) 81 mg DAILY PO 09/25/17 09:00 09/26/17 08:30 (Lasix) 20 mg BID PO 09/25/17 09:00 09/26/17 08:29 (Imdur) 60 mg DAILY PO 09/25/17 09:00 09/26/17 08:29 (Prinivil) 10 mg DAILY PO 09/25/17 09:00 09/26/17 08:29 (Lopressor) 25 mg BID PO 09/25/17 09:00 09/26/17 08:29 (Pravachol) 20 mg HS PO 09/25/17 21:00 09/25/17 23:20 (Duoneb Neb) 1 ampule QID NEB NEB 09/25/17 12:00 09/26/17 08:14 (Duoneb Neb) 1 ampule Q4HR NEB PRN NEB 09/25/17 13:30 (NovoLOG SUPPLEMENTAL SCALE) 1 ACHS SLIDING SCALE SQ 09/26/17 08:00 09/26/17 08:00 (NovoLIN N INJ) 30 units BID@08,17 SQ 09/26/17 08:00 09/26/17 08:00 A/P Problem List: (1) COPD (chronic obstructive pulmonary disease) ICD Code: J44.9 - Chronic obstructive pulmonary disease, unspecified (2) A-fib ICD Code: I48.91 - Unspecified atrial fibrillation (3) DM (diabetes mellitus) ICD Code: E11.9 - Type 2 diabetes mellitus without complications Assessment and Plan 77-year-old male with a PMH of A. fib on Coumadin, HTN, DM, COPD and CHF (Echo with EF 60-65%) who presented to the ER with complaints of progressive SOB and wheezing x3 days. Acute COPD exacerbation: Moderate to Severe. S/p Solu-Medrol and DuoNeb in ER , with minimal improvement. Off home nebulizers for almost 1wk while on vacation. -CXR w/ small left effusion, images reviewed -Continue steroids with IV Solu-Medrol 40mg q6h -DuoNebs qid and q4h prn -Symbicort bid -Mucinex bid. -WBC 16K w/ productive sputum, continue antibiotics with IV Levaquin. -Check Sputum Cultures -Symptoms improving A-fib with Supratherapeutic INR: Chronic. Rate controlled. -On Coumadin, INR supratherapeutic at 4.6, no active bleeding, will hold Coumadin -repeat INR 3.8, continue to hold coumadin -monitor daily INR DM with Hyperglycemia: BG into 400s, suspect exacerbated by steroids. -Continue patient's Novolin NPH, however will increase dose from 25u bid to 30ubid -Monitor Accu-Checks and increase SSI to medium dose. -Monitor for improvement ODILIA: Cr increased from 1.27 to 1.65 during hospitalization. Possibly secondary to lasix and dehydration. Appears dry on exam. -hold lasix for now -give IVF 500cc x1 -repeat BMP this afternoon DVT Prophylaxis: Holding Coumadin Discharge Planning Discharge pending further clinical improvement, blood glucose improvement, and BMP this afternoon. The patient really wants to go home however still with wheezing on exam and now with ODILIA and uncontrolled sugars. Will reassess this afternoon. Shama Connor PA-C September 26, 2017 8:21 am
[2017-09-26] MEDS: DOCUSATE SODIUM 50 MG/SENNA 8.6 MG TAB PO SCH ×2 (08:28→20:37)
[2017-09-26] MEDS: FUROSEMIDE 20 MG TAB PO SCH (08:29)
[2017-09-26] MEDS: METOPROLOL TARTRATE 25 MG TAB PO SCH ×2 (08:29→20:37)
[2017-09-26] MEDS: guaiFENesin E.R. 600 MG TAB PO SCH ×2 (08:29→20:37)
[2017-09-26] MEDS: LISINOPRIL 10 MG TAB PO SCH (08:29)
[2017-09-26] MEDS: ISOSORBIDE MONONITRATE 60 MG CR TAB (IMDUR) PO SCH (08:29)
[2017-09-26] MEDS: ASPIRIN EC 81 MG TABEC PO SCH (08:30)
[2017-09-26] MEDS: BUDESONIDE-FORMOTEROL 160/4.5 MCG INHALER INH SCH ×2 (08:30→20:37)
[2017-09-26] MEDS: SODIUM CHLORIDE 0.9% FLUSH 10 ML FLUSH IV FLUSH SCH ×2 (08:30→20:38)
[2017-09-26 08:33] LABS: ALBUMIN 3.2 GM/DL (3.4-5.0); ALKALINE PHOSPHATASE 87 U/L (45-117); ALT (GPT) 21 U/L (12-78); AST (GOT) 16 U/L (15-37); BICARBONATE 19.8 MEQ/L (21.0-32.0); BLOOD UREA NITROGEN 42 MG/DL (7-18); CALCIUM 9.3 MG/DL (8.5-10.1); CHLORIDE 102 MEQ/L (98-107); CREATININE 1.65 MG/DL (0.60-1.30); GLOMERULAR FILTRATION RATE 41 ML/MIN (>89); GLUCOSE,RANDOM 303 MG/DL (74-106); SODIUM (NA) 135 MEQ/L (136-145); TOTAL BILIRUBIN ADULT 0.4 MG/DL (0.2-1.0); TOTAL PROTEIN 6.8 GM/DL (6.4-8.2)
[2017-09-26] MEDS ORDERED: SODIUM CHLORID 0.9% 500 ML INJ 500 ML IV SCH (10:15)
[2017-09-26 16:04] LABS: BICARBONATE 18.5 MEQ/L (21.0-32.0); CALCIUM 9.3 MG/DL (8.5-10.1); CREATININE 1.67 MG/DL (0.60-1.30)
[2017-09-26 18:00] LABS: INTERNATIONAL NORMALIZED RATIO 2.9 RATIO; PROTHROMBIN TIME - PATIENT 28.8 SEC (9.8-11.6)
--- NOTE | 2017-09-26 18:49 | RADRPT ---
EXAM DATE/TIME: 09/26/2017 18:24 [place] COMPARISON: No previous studies available for comparison. INDICATIONS : Increased BUN/Creatnine. MEDICAL HISTORY : Congestive heart failure. Hypertension. Chronic obstructive pulmonary disease. Anticoagulant therapy. Atrial fibrillation. Diabetes. Hypercholestrolemia. SURGICAL HISTORY : Pacemaker. ENCOUNTER: Initial ACUITY: 1 day PAIN SCORE: 0/10 LOCATION: Bilateral flank MEASUREMENTS: RIGHT KIDNEY: 9.0 x 4.3 x 4.7 cm LEFT KIDNEY: 9.5 x 3.7 x 4.9 cm COMPLETE APPROPRIATE ITEMS PRE PROCEDURE: ID x 2: Complete NameDate of BirthPatient Name Band Education: Nurse/Technologist explained proce dure to patient/family. Patient/family demonstrates understanding of procedure. FINDINGS: RIGHT KIDNEY: The kidney is small and echogenic with cortical thinning. No hydronephrosis. 2 simple cysts observed. Both laterally measuring 3.3 cm and 1.6 cm respectively. LEFT KIDNEY: The kidney is small and echogenic with cortical thinning. No hydronephrosis. BLADDER: Within normal limits given the degree of distension. CONCLUSION: Sonographic findings consistent with underlying medical renal disease. No obstruction. 2 simple appe aring cysts on the right. Warner Nunez Jr., MD on September 26, 2017 at 18:45 Board Certified Radiologist. This report was verified electronically.
[2017-09-26] MEDS: PRAVASTATIN SOD 20 MG TAB PO SCH (20:37)
[2017-09-26] MEDS: LEVOFLOXACIN 750 MG PREMIX INJ 150 ML IV SCH (23:24)
[2017-09-27] VITALS (7 sets, daily range): BP systolic 111–140; BP diastolic 59–79; PULSE 70–72; RESP 16–18; TEMP 97.5–98.9; O2SAT 94–99
[2017-09-27 05:31] LABS: AUTOMATED NEUTROPHIL # 20.3 TH/MM3 (1.8-7.7); BASOPHIL # 0.1 TH/MM3 (0-0.2); BASOPHIL % 0.3 % (0.0-2.0); EOSINOPHIL % 0.1 % (0.0-4.0); HEMATOCRIT 43.3 % (39.0-51.0); HEMOGLOBIN 14.4 GM/DL (13.0-17.0); LYMPH % 2.4 % (9.0-44.0); LYMPHOCYTE # 0.5 TH/MM3 (1.0-4.8); MEAN CELL VOLUME 86.4 FL (80.0-100.0); MEAN CORPUSCULAR HEMOGLOBIN 28.7 PG (27.0-34.0); MEAN CORPUSCULAR HGB CONC 33.2 % (32.0-36.0); MEAN PLATELET VOLUME 9.3 FL (7.0-11.0); MONO % 3.9 % (0.0-8.0); MONOCYTE # 0.9 TH/MM3 (0-0.9); NEUT % 93.3 % (16.0-70.0); PLATELET COUNT 261 TH/MM3 (150-450); RED BLOOD COUNT 5.01 MIL/MM3 (4.50-5.90); RED CELL DISTRIBUTION WIDTH 14.6 % (11.6-17.2); WHITE BLOOD COUNT 21.8 TH/MM3 (4.0-11.0)
[2017-09-27] MEDS: methylPREDNISolone SOD SUCC 40 MG/1 ML VIAL IV PUSH SCH ×2 (05:39→13:29)
[2017-09-27 05:40] LABS: INTERNATIONAL NORMALIZED RATIO 2.1 RATIO; PROTHROMBIN TIME - PATIENT 21.1 SEC (9.8-11.6)
[2017-09-27 05:48] LABS: BICARBONATE 21.9 MEQ/L (21.0-32.0); CALCIUM 9.3 MG/DL (8.5-10.1); CREATININE 1.75 MG/DL (0.60-1.30)
[2017-09-27] MEDS: DOCUSATE SODIUM 50 MG/SENNA 8.6 MG TAB PO SCH ×2 (09:00→21:00)
[2017-09-27] MEDS: RESP: ALBUTEROL 2.5 MG/IPRATROPIUM 0.5 MG NEB (SCH) NEB ×4 (09:15→19:39)
[2017-09-27] MEDS: METOPROLOL TARTRATE 25 MG TAB PO SCH ×2 (09:46→22:03)
[2017-09-27] MEDS: guaiFENesin E.R. 600 MG TAB PO SCH ×2 (09:46→22:03)
[2017-09-27] MEDS: ISOSORBIDE MONONITRATE 60 MG CR TAB (IMDUR) PO SCH (09:46)
[2017-09-27] MEDS: ASPIRIN EC 81 MG TABEC PO SCH (09:46)
[2017-09-27] MEDS: INSULIN HUMAN NPH 1,000 UNITS/10 ML VIAL SQ SCH ×2 (09:47→18:35)
[2017-09-27] MEDS: INSULIN ASPART SUPPLEMENTAL SCALE SQ SCH ×4 (09:47→22:03)
[2017-09-27] MEDS: BUDESONIDE-FORMOTEROL 160/4.5 MCG INHALER INH SCH ×2 (09:47→22:04)
[2017-09-27] MEDS: SODIUM CHLORIDE 0.9% FLUSH 10 ML FLUSH IV FLUSH SCH ×2 (09:48→22:04)
[2017-09-27] MEDS ORDERED: SODIUM CHLORID 0.9% 500 ML INJ 500 ML IV ONE (10:00)
--- NOTE | 2017-09-27 10:04 | HHI.PR ---
Subjective Remarks Follow up on patient with AECOPD, supratherapeutic INR. Patient seen and examined. Patient states he feels better this am but still gets short of breath with minimal exertion such as walking to the bathroom. He reports cough without any sputum production. Denies any fever or chills. He denies any chest pain. Patient does not use oxygen at home. Patient reports occasional issues with choking when swallowing certain foods especially those that are dry. He reports a history of CHF. He denies any increase in shortness of breath when lying flat. Denies any swelling in the bilateral lower extremities. Objective Vitals Vital Signs Date Time Temp Pulse Resp B/P (MAP) Pulse Ox O2 Delivery O2 Flow Rate FiO2 09/27/17 09:16 99 21 09/27/17 08:03 98.6 70 18 140/79 (99) 94 09/27/17 03:06 97.9 70 16 124/64 (84) 94 09/26/17 23:19 97.4 71 16 125/63 (83) 95 09/26/17 20:05 97.4 70 16 128/60 (82) 97 09/26/17 19:49 98 09/26/17 16:50 98.4 75 20 126/62 (83) 96 09/26/17 12:27 98.5 67 18 133/64 (87) 95 I/O 09/26/17 09/26/17 09/26/17 09/27/17 09/27/17 09/27/17 07:00 15:00 23:00 07:00 15:00 23:00 Intake Total 650 ml Balance 650 ml Intake IV Total 650 ml Result Diagram: 09/27/17 0442 09/27/17 0442 Imaging Last Impressions Renal Ultrasound 09/26/17 0000 Signed Impressions: Service Date/Time: Tuesday, September 26, 2017 18:24 - CONCLUSION: Sonographic findings consistent with underlying medical renal disease. No obstruction. 2 simple appearing cysts on the right. Warner Nunez Jr., MD Chest X-Ray 09/24/172124 Signed Impressions: Service Date/Time: Sunday, September 24, 2017 21:42 - CONCLUSION: 1. Cardiomegaly with left-sided pacemaker. 2. Small left pleural effusion. Rambo Hare MD Objective Remarks GENERAL: Well-nourished, well-developed pleasant elderly male patient in [place]. Sitting up in bed awake and alert. Appears short of breath with speaking. is at the bedside. SKIN: Warm and dry. No rash. HEENT: Normocephalic. Atraumatic. Pupils equal and round. Sclera anicteric. No nasal drainage or discharge. Airway patent. Mucous membranes pink and moist. CARDIOVASCULAR: Regular rate and rhythm. No murmur appreciated. RESPIRATORY: Diminished. Mild diffuse expiratory wheezing throughout all lung liu. Breath sounds equal bilaterally. GASTROINTESTINAL: Abdomen soft, non-tender, nondistended. Normoactive bowel sounds x4. MUSCULOSKELETAL: No obvious deformities. Extremities without clubbing or cyanosis. Trace BLE edema noted. NEUROLOGICAL: Awake and alert. No obvious cranial nerve deficits. Motor grossly within normal limits. Moving all extremities spontaneously. Normal speech. PSYCHIATRIC: Appropriate mood and affect; insight and judgment normal. Procedures None. A/P Problem List: (1) COPD (chronic obstructive pulmonary disease) ICD Code: J44.9 - Chronic obstructive pulmonary disease, unspecified (2) A-fib ICD Code: I48.91 - Unspecified atrial fibrillation (3) DM (diabetes mellitus) ICD Code: E11.9 - Type 2 diabetes mellitus without complications Assessment and Plan 77-year-old male with a PMH of A. fib on Coumadin, HTN, DM, COPD and CHF (Echo with EF 60-65%) who presented to the ER with complaints of progressive SOB and wheezing x3 days. Acute COPD exacerbation: Moderate to Severe. S/p Solu-Medrol and DuoNeb in ER , with minimal improvement. Off home nebulizers for almost 1wk while on vacation. CXR w/ small left effusion -DC IV Solu-Medrol. Begin prednisone 40 mg p.o. daily 5 days -DuoNebs qid and q4h prn -Symbicort bid -Mucinex bid. -Home oxygen walk test ordered -d/c IV Levaquin Suspect CHF exacerbation Patient off po Lasix secondary to ODILIA -obtain BNP and CXR -IV Lasix 20mg x 1 dose now, continue BID. Monitor electrolytes. -change to heart healthy diabetic diet with 2 g sodium restriction -Strict I's and O's -Daily weights ordered A-fib with Supratherapeutic INR: Chronic. Rate controlled. INR now 2.1 -Resume Coumadin 2mg daily -[facility] DM with Hyperglycemia: BG into 400s, suspect exacerbated by steroids. Blood sugar improved this morning, 193 -Continue patient's Novolin NPH at 30ubid -Monitor Accu-Checks and increase -Change to diabetic diet ODILIA: Cr increased from 1.27 to 1.65 during hospitalization. Possibly secondary to lasix and dehydration. Renal ultrasound reveals medical renal disease, no evidence of hydronephrosis -hold ACEI -obtain UA, urine creatinine and urine sodium -obtain CK -strict I&Os -repeat BMP in am -Consider nephrology consultation if creatinine continues to worsen DVT prophylaxis -ambulation -resume patients Coumadin Discharge Planning Not ready for discharge. Discharge pending clinical improvement. Perlita Mena September 27, 2017 10:04
[2017-09-27] MEDS ORDERED: WARF4TAB51 PO (13:47)
[2017-09-27] MEDS ORDERED: LEVA750T9 PO (13:47)
[2017-09-27] MEDS ORDERED: PRED10 PO (13:47)
[2017-09-27] MEDS ORDERED: FUROSEMIDE 20 MG/2 ML VIAL IV PUSH ONE (15:00)
[2017-09-27 15:23] LABS: BILIRUBIN, URINE NEG (NEG); BLOOD, URINE NEG (NEG); GLUCOSE,URINE 300 mg/dL (NEG); KETONE, URINE NEG (NEG); NITRITE,URINE NEG (NEG); SQUAMOUS EPITHELIAL CELL URINE <1 /hpf (0-5); URINE COLOR YELLOW (YELLW/STRAW); URINE LEUKOCYTE ESTERASE NEG (NEG)
[2017-09-27 15:25] LABS: CREATININE, RANDOM URINE 74.4 MG/DL
--- NOTE | 2017-09-27 15:58 | RADRPT ---
EXAM DATE: 09/27/2017 3:53 PM EDT AGE/SEX: 77 years / Male INDICATIONS: Short of breath, dyspnea. CLINICAL DATA: This is the patient's initial encounter. Patient reports that signs and symptoms have been present for 1 day and indicates a pain score of 0/10. MEDICAL/SURGICAL HISTORY: . Hypertension. Hypercholesterolemia. Congestive heart failure. Atria l fibrillation. Diabetes . COMPARISON: [facility] [place]. . FINDINGS: A pacing implement is present with control pack over left upper chest. Blunting of the lef t costophrenic angle consistent with small effusion. Right lung is clear. Cardiac contours are grossl y satisfactory CONCLUSION: Left base parenchymal opacity, likely small effusion Electronically signed by: Mike Jordan MD 09/27/2017 3:57 PM EDT
[2017-09-27] MEDS ORDERED: WARFARIN SOD 2 MG TAB PO SCH (16:00)
[2017-09-27] MEDS: FUROSEMIDE 20 MG/2 ML VIAL IV PUSH SCH (18:36)
[2017-09-27] MEDS: PRAVASTATIN SOD 20 MG TAB PO SCH (22:03)
[2017-09-28 00:39] VITALS: BP 126/60; PULSE 70; RESP 16; TEMP 97.6; O2SAT 95
[2017-09-28 04:29] VITALS: BP 124/67; PULSE 70; RESP 16; TEMP 97.5; O2SAT 95
[2017-09-28 06:46] LABS: INTERNATIONAL NORMALIZED RATIO 1.5 RATIO; PROTHROMBIN TIME - PATIENT 15.4 SEC (9.8-11.6)
[2017-09-28 07:17] LABS: BICARBONATE 21.7 MEQ/L (21.0-32.0); CALCIUM 9.1 MG/DL (8.5-10.1); CREATININE 1.5 MG/DL (0.60-1.30)
[2017-09-28] MEDS: RESP: ALBUTEROL 2.5 MG/IPRATROPIUM 0.5 MG NEB (SCH) NEB ×2 (07:38→11:54)
[2017-09-28 07:39] VITALS: O2SAT 96
[2017-09-28 08:00] VITALS: BP 128/67; PULSE 70; RESP 18; TEMP 97.4; O2SAT 95
[2017-09-28] MEDS: ASPIRIN EC 81 MG TABEC PO SCH (08:41)
[2017-09-28] MEDS: BUDESONIDE-FORMOTEROL 160/4.5 MCG INHALER INH SCH (08:41)
[2017-09-28] MEDS: FUROSEMIDE 20 MG/2 ML VIAL IV PUSH SCH (08:41)
[2017-09-28] MEDS: ISOSORBIDE MONONITRATE 60 MG CR TAB (IMDUR) PO SCH (08:42)
[2017-09-28] MEDS: METOPROLOL TARTRATE 25 MG TAB PO SCH (08:42)
[2017-09-28] MEDS: guaiFENesin E.R. 600 MG TAB PO SCH (08:42)
[2017-09-28] MEDS: DOCUSATE SODIUM 50 MG/SENNA 8.6 MG TAB PO SCH (08:43)
[2017-09-28] MEDS: SODIUM CHLORIDE 0.9% FLUSH 10 ML FLUSH IV FLUSH SCH (08:43)
[2017-09-28] MEDS ORDERED: predniSONE 20 MG TAB PO SCH (09:00)
[2017-09-28] MEDS: INSULIN HUMAN NPH 1,000 UNITS/10 ML VIAL SQ SCH (09:43)
[2017-09-28] MEDS: INSULIN ASPART SUPPLEMENTAL SCALE SQ SCH ×2 (09:45→14:02)
[2017-09-28] MEDS ORDERED: WARF-18 PO (11:51)
[2017-09-28] MEDS ORDERED: PRED20 PO (11:51)
[2017-09-28] MEDS ORDERED: ALBU0.08 NEB (11:54)
--- NOTE | 2017-09-28 11:58 | HHI.DS ---
Discharge Summary Admission Date September 25, 2017 at 02:09 Discharge Date: September 28, 2017 Admitting Diagnosis COPD exacerbation Acute on chronic respiratory failure Chronic atrial fibrillation Poorly controlled diabetes Supra therapeutic INR (1) COPD exacerbation ICD Code: J44.1 - Obstructive chronic bronchitis with exacerbation Status: Acute (2) CHF exacerbation ICD Code: I50.9 - Heart failure, unspecified Status: Acute (3) Supratherapeutic INR ICD Code: R79.1 - Supratherapeutic INR Status: Acute (4) Acute renal disease ICD Code: N28.9 - Disorder of kidney and ureter, unspecified (5) COPD (chronic obstructive pulmonary disease) ICD Code: J44.9 - Chronic obstructive pulmonary disease, unspecified (6) A-fib ICD Code: I48.91 - Unspecified atrial fibrillation (7) DM (diabetes mellitus) ICD Code: E11.9 - Type 2 diabetes mellitus without complications (8) Atrial fibrillation ICD Code: I48.91 - Atrial fibrillation Status: Chronic (9) Hypertension ICD Code: I10 - Hypertension Status: Chronic Procedures None. Brief History - From Admission This is a 77-year-old male with a PMH of A. fib on Coumadin, HTN, DM, COPD and CHF (Echo 09/29/2016 with EF 60-65%) who presented to the ER with complaints of progressive SOB and wheezing x3 days. Visiting from [place] for a wedding and states he forgot to bring his home nebulizers. Reports productive cough w/ brown-colored sputum. No fever or chills. Has been taking NyQuil and Tylenol with no relief. On arrival, BP 182/79, HR 69, O2 sat 94% RA, Afebrile. WBC 16.6. Chemistry unremarkable. BNP 247. INR 4.6 CXR with cardiomegaly and pacemaker, small left pleural effusion. S/p DuoNeb and Solu-Medrol in ER w/ mild improvement. CBC/BMP: 09/27/17 0442 09/28/17 0531 Significant Findings Laboratory Tests Test 09/26/17 06:50 09/26/17 14:50 09/26/17 16:36 09/27/17 04:42 White Blood Count 20.8 TH/MM3 (4.0-11.0) 21.8 TH/MM3 (4.0-11.0) Neutrophils (%) (Auto) 93.7 % (16.0-70.0) 93.3 % (16.0-70.0) Lymphocytes (%) (Auto) 2.7 % (9.0-44.0) 2.4 % (9.0-44.0) Neutrophils # (Auto) 19.4 TH/MM3 (1.8-7.7) 20.3 TH/MM3 (1.8-7.7) Lymphocytes # (Auto) 0.6 TH/MM3 (1.0-4.8) 0.5 TH/MM3 (1.0-4.8) Prothrombin Time 38.4 SEC (9.8-11.6) 28.8 SEC (9.8-11.6) 21.1 SEC (9.8-11.6) Blood Urea Nitrogen 42 MG/DL (7-18) 44 MG/DL (7-18) 53 MG/DL (7-18) Creatinine 1.65 MG/DL (0.60-1.30) 1.67 MG/DL (0.60-1.30) 1.75 MG/DL (0.60-1.30) Random Glucose 303 MG/DL (74-106) 315 MG/DL (74-106) 212 MG/DL (74-106) Albumin 3.2 GM/DL (3.4-5.0) Sodium Level 135 MEQ/L (136-145) Carbon Dioxide Level 19.8 MEQ/L (21.0-32.0) 18.5 MEQ/L (21.0-32.0) Estimat Glomerular Filtration Rate 41 ML/MIN (>89) 40 ML/MIN (>89) 38 ML/MIN (>89) Test 09/27/17 14:26 09/28/17 05:31 Urine Glucose (UA) 300 mg/dL (NEG) Prothrombin Time 15.4 SEC (9.8-11.6) Blood Urea Nitrogen 54 MG/DL (7-18) Creatinine 1.50 MG/DL (0.60-1.30) Random Glucose 180 MG/DL (74-106) Estimat Glomerular Filtration Rate 46 ML/MIN (>89) Imaging Last Impressions Chest X-Ray 09/27/17 0000 Signed Impressions: CONCLUSION: Left base parenchymal opacity, likely small effusion Renal Ultrasound 09/26/17 0000 Signed Impressions: Service Date/Time: Tuesday, September 26, 2017 18:24 - CONCLUSION: Sonographic findings consistent with underlying medical renal disease. No obstruction. 2 simple appearing cysts on the right. Warner Nunez Jr., MD PE at Discharge GENERAL: Well-nourished, well-developed pleasant elderly male patient in NAD. Sitting up in bed awake and alert. Appears short of breath with speaking. is at the bedside. SKIN: Warm and dry. No rash. HEENT: Normocephalic. Atraumatic. Pupils equal and round. Sclera anicteric. No nasal drainage or discharge. Airway patent. Mucous membranes pink and moist. CARDIOVASCULAR: Regular rate and rhythm. No murmur appreciated. RESPIRATORY: Diminished. Mild diffuse expiratory wheezing throughout all lung liu. Breath sounds equal bilaterally. GASTROINTESTINAL: Abdomen soft, non-tender, nondistended. Normoactive bowel sounds x4. MUSCULOSKELETAL: No obvious deformities. Extremities without clubbing or cyanosis. Trace BLE edema noted. NEUROLOGICAL: Awake and alert. No obvious cranial nerve deficits. Motor grossly within normal limits. Moving all extremities spontaneously. Normal speech. PSYCHIATRIC: Appropriate mood and affect; insight and judgment normal. Pt update on day of discharge Follow-up on patient with CHF and COPD exacerbation. Patient seen and examined. Patient states he feels much improved. He denies any complaints of cough, shortness of breath or chest pain. He denies any complaints of nausea vomiting or abdominal pain. Denies any fever or chills. States he has been urinating well. Discussed with nursing staff, no acute issues noted. Patient has been satting 95% on room air. Hospital Course Patient started on IV Solu-Medrol and scheduled duo nebs for COPD exacerbation. Chest x-ray revealed small left effusion. Patient's white count was 16 with productive sputum the patient was started on IV Levaquin. Sputum cultures were ordered but were not obtained due to no specimen. Patient was found to have a supratherapeutic INR 4.6 and Coumadin was held. Patient developed a KI likely due to Lasix and dehydration. Patient's Lasix was placed on hold he was given a 500 cc bolus of IV fluid. Also had some difficulty controlling patient's blood sugars while on IV Solu-Medrol with increase in blood sugars in the 400s. Patient's Novolin NPH was adjusted with good response and better control of BS. Patient was transitioned off of IV Solu-Medrol to oral prednisone. Patient continued to have shortness of breath and developed a nonproductive cough that was felt to be due to CHF exacerbation. Patient was treated with IV Lasix, strict I's and O's and a low-salt diet. Patient improved clinically. Patient's creatinine improved dropping from 1.75 to 1.50. Patient's INR dropped to 2.1 and he was resumed on 2 mg of Coumadin. On the day of discharge patient's INR was 1.5 and he was given an additional 2 mg of Coumadin for a total of 4mg and was instructed to continue with 2.5 mg daily and to follow-up with his PCP [facility] and have his INR rechecked in the next 2 days. Case management assisted with discharge planning for home health nursing for CHF and COPD teaching as well as use of nebulizer. Patient was given nebulizer with albuterol medication at discharge. Pt Condition on Discharge: Stable Discharge Disposition: Disch w/ Home Health Serv Discharge Time: > 30 minutes Discharge Instructions DIET: Follow Instructions for: Heart Healthy Diet, Diabetic Diet Fluid Restrictions: 2L Activities you can perform: Regular-No Restrictions Follow up Referrals: Cardiology - 1 Week PCP Follow-up - 2-3 Days New Orders: BASIC METABOLIC PROF - 2-3 Days PT/INR - 2 Days New Medications: Albuterol Neb (Albuterol Neb) 2.5 Mg/3 Ml Neb 2.5 MG NEB Q4HR NEB PRN for SHORTNESS OF BREATH, #60 NEBULE 0 Refills Nebulizer (Nebulizer) 1 Mis Mis EA .XX DIRECTED for Breathing Treatment, #1 0 Refills Nebulizer Kit/Tubing/Mout (Nebulizer Kit/Tubing/Mout) 1 Kit Kit KIT .XX DIRECTED for Breathing Treatment, #1 0 Refills Nebulizer/Adult Mask (Nebulizer/Adult Mask) 1 Kit Kit KIT .XX DIRECTED for Breathing Treatment, #1 0 Refills Prednisone (Prednisone) 20 Mg Tab 40 MG PO DAILY for COPD exacerbation for 4 Days, #8 TAB 0 Refills Take 40 mg (2 tablets) daily for 5 days Warfarin (Warfarin) 2.5 Mg Tab 2.5 MG PO DAILY for Blood Clot Prevention, #30 TAB 0 Refills Changed Medications: Warfarin (Warfarin) 2 Mg Tab 2 MG PO DAILY for Blood Clot Prevention, #30 TAB 0 Refills (Changed from: TUESDAY ) Continued Medications: Albuterol 18 GM Inh (Ventolin Hfa 18 GM Inh) 90 Mcg/Act Aer 2 PUFF INH TID PRN for SHORTNESS OF BREATH, #1 INHALER 0 Refills Amlodipine (Amlodipine) 10 Mg Tab 10 MG PO DAILY for Blood Pressure Management, #30 TAB [address] (Aspirin EC Low Dose) 81 Mg Tabec 81 MG PO DAILY for HEART, TAB Furosemide (Lasix) 20 Mg Tab 20 MG PO BID, #60 TAB 0 Refills Hypromellose Opth Drops (Isopto Tears Opth Drops) 0.5% Drops 1 DROP EACH EYE QID for DRY EYE, #15 ML 0 Refills Insulin Human NPH Inj (Novolin N Inj) 1,000 Unit/10 Ml Vial 25 UNITS SQ BID@08,17 for Blood Sugar Management, #100 INJECTION Ipratropium HFA 12.9 GM Inh (Atrovent HFA 12.9 GM Inh) 17 Mcg/Act Aer 2 PUFF INH Q6HR PRN for SHORTNESS OF BREATH, #1 INHALER 0 Refills Isosorbide Mononitrate ER (Isosorbide Mononitrate ER) 60 Mg Tab 60 MG PO DAILY for ANGINA, #30 TAB 0 Refills Lisinopril (Lisinopril) 10 Mg Tab 10 MG PO DAILY, #30 TAB 0 Refills Metoprolol Tartrate (Metoprolol Tartrate) 25 Mg Tab 25 MG PO BID for HEART & BP, #60 TAB 0 Refills Polyvinyl Alcohol Opth (Polyvinyl Alcohol Opth) 1.4% Soln 1 DROP EACH EYE QID for Dry Eye, #15 ML Simvastatin (Simvastatin) 10 Mg Tab 10 MG PO HS for Cholesterol Management, #30 TAB 0 Refills Tiotropium Inh (Spiriva Handihaler) 18 Mcg Cap 18 MCG INH DAILY for COPD, #30 CAP 0 Refills 1 capsule = 18 mcg Discontinued Medications: Azithromycin (Azithromycin) 250 Mg Tab 250 MG PO DAILY for Infection, #3 TAB 0 Refills Prednisone (21) 10 mg tab Dose Pack (Prednisone (21) 10 mg tab Dose Pack) 10 Mg Pack 10 MG PO DIRECTED for Inflammation, #1 DSPK 0 Refills Warfarin (Warfarin) 4 Mg Tab 4 MG PO SuTuWeThFrSa for Blood Clot Prevention, #30 TAB 0 Refills Perlita Mena September 28, 2017 11:58
[2017-09-28] MEDS ORDERED: WARFARIN SOD 2 MG TAB PO ONE (12:00)
[2017-09-28 12:22] VITALS: BP 133/68; PULSE 70; RESP 18; TEMP 97.4; O2SAT 97
[2017-09-28] MEDS ORDERED: LEVOFLOXACIN 750 MG TAB PO SCH (18:00)
== END 2017-09-28 14:30 | disposition home or self-care (01) ==
LOC: NEPE 21:05 → NEDA 09-25 02:09 → NEPGCP 09-25 05:07
PROVIDERS: ADMIT Internal Medicine; ATTEND Internal Medicine
DX: J44.1 Chronic obstructive pulmonary disease with (acute) exacerbation (principal); I50.9 Heart failure, unspecified; I11.0 Hypertensive heart disease with heart failure; I48.2 Chronic atrial fibrillation; E86.0 Dehydration; J96.20 Acute and chronic respiratory failure, unspecified whether with hypoxia or hypercapnia; N17.9 Acute kidney failure, unspecified; E78.00 Pure hypercholesterolemia, unspecified; E11.65 Type 2 diabetes mellitus with hyperglycemia; D72.829 Elevated white blood cell count, unspecified; R79.1 Abnormal coagulation profile; Z79.01 Long term (current) use of anticoagulants; Z79.4 Long term (current) use of insulin
CPT/HCPCS: 71045; 71046; 76775; 80048; 80053; 81001; 82550; 82570; 82948; 83605; 83880; 84300; 85025; 85610; 87804; 93005; 94618; 94640; 94664; 94667; 94668; 96361; 96365; 96366; 96367; 96368; 96372; 96375; 96376; 99285; G0378; J0456; J0696; J1815; J1940; J1956; J2920; J2930; J7040; J7050; J7512